=== PATIENT | male | born 1970 | race Caucasian/White ===

== ENCOUNTER 2017-03-06 02:39 | Emergency (ER) | payer OTHER ==
[~2017-03-06] VITALS: Ht 182.9 cm; Wt 147.0 kg
[2017-03-06 02:43] VITALS: BP 143/91; PULSE 96; TEMP 36.7; O2SAT 97; Ht 182.9 cm; Wt 147.0 kg
[2017-03-06] MEDS ORDERED: AMOXICILLIN 250 MG CAP PO STA (02:52)
[2017-03-06] MEDS ORDERED: AMOX500T3 PO (03:07)
--- NOTE | 2017-03-06 03:08 | EMERGENCY ROOM VISIT NOTE ---
ED Visit Note First contact with patient: 02:45 CHIEF COMPLAINT: Earache HISTORY OF PRESENT ILLNESS: This 46-year-old male presents to the emergency department complaining of pain in both of his ears for the past few days. He also states that his ears have been popping. He reports these symptoms are similar to when he has had ear infections in the past. He has had tubes in his ears in the past. He rates the discomfort a 5/10. He denies any sore throat or cough. He has been taking utyp-oiz-[id number] medications for pain. REVIEW OF SYSTEMS: A 6 system review of systems was completed with positives and pertinent negatives listed in the HPI. ALLERGIES: No known drug allergies MEDICATIONS: No chronic medications PMH: No significant past medical history. Immunizations are up to date. SH: The patient lives locally with family. He is a smoker. PHYSICAL EXAM: Vital Signs: Reviewed Nurse's notes, temperature 36.7C orally. GENERAL: This is a 46-year-old male, in no acute distress, well-developed, well- nourished. SKIN: Normal. HEART: Regular rate and rhythm without murmurs gallops or rubs. LUNGS: Clear to auscultation and breath sounds equal, no wheezes, rales, or rhonchi. MOUTH: The pharynx is not inflamed and the tonsils are not enlarged. The airway is patent. EARS: Bilateral tympanic membranes are erythematous and injected. No tympanostomy tubes are seen. The external auditory canals are clear with no tragus tenderness. LYMPH: There is no lymphadenopathy. ED COURSE: I examined the patient. He does appear to have a mild bilateral otitis media. He will be treated with amoxicillin. He was given an initial dose here and instructed to follow-up with primary care provider. The patient was discharged home in stable condition. Medication reconciliation: I attest that I have personally reviewed the patient 's current medication list. Blood pressure screening: Patient was found to have an elevated blood pressure and was referred to their primary care provider for recheck and further treatment. DIAGNOSIS: Acute bilateral otitis media Problem List Medical Problems: (1) Kidney stone Status: Resolved Current/Historical Medications No Active Prescriptions or Reported Meds Allergies Uncoded Allergies: HOME MADE COLEMANSUP (Allergy, Unknown, SWELLING, 01/27/16) Vital Signs Date Time Temp Pulse Resp B/P (MAP) Pulse Ox O2 Delivery O2 Flow Rate FiO2 03/06/17 02:43 36.7 96 16 143/91 97 Room Air Medications Administered Medications (Trade) Dose Ordered Sig/Eulalia Route Start Time Stop Time Status Last Admin Dose Admin Amoxicillin (Amoxil Cap) 500 mg NOW STAT PO 03/06/17 02:52 03/06/17 02:55 DC 03/06/17 02:58 500 MG Departure Information Impression Primary Impression: Bilateral otitis media Dispostion Home / Self-Care Condition GOOD Prescriptions Amoxicillin (AMOXIL) 500 Mg Tab 500 MG PO BID for 10 Days, #20 TAB Prov: Sachi Camacho PA-C 03/06/17 Referrals No Doctor, Assigned (PCP) Patient Instructions My [facility] Additional Instructions You have been treated in the Emergency Department for an Inner Ear Infection ( Otitis Media). You were prescribed amoxicillin to be taken twice daily for a total of 10 days. This is an antibiotic. All antibiotics have the potential to cause diarrhea. Stop this medication and contact a medical provider if you were to develop any significant adverse side effects including: wheezing, shortness of breath, passing out, vomiting, or a diffuse rash. Always take antibiotics as directed and COMPLETE the ENTIRE course regardless of the improvement of your symptoms. For pain and fever control, you can use the following dohe-nay-oknzmsg medicines (if >12 yo): - Regular strength (325mg/tab) Tylenol (acetaminophen) 2 tabs every 4-6 hours as needed. Do not exceed 12 tablets in a 24 hour period. Avoid taking more than 4 grams (4000 mg) of Tylenol per day. This includes any other sources of acetaminophen you may take on a regular basis. - Regular strength (200 mg/tab) Advil (ibuprofen) 1-2 tabs every 4-6 hours as needed. Do not exceed a dose of 3200 mg per day. You should follow-up with your Primary Care Provider from today's Emergency Department visit. Your blood pressure was elevated today. You should have this rechecked by your regular doctor or provider. Return to the emergency department if you develop the following symptoms despite treatment course outlined above: headache, fever, intractable pain, increased redness, swelling, or purulent discharge. Problem Qualifiers Primary Impression: Bilateral otitis media Otitis media type: unspecified Chronicity: unspecified Qualified Codes: H66.93 - Otitis media, unspecified, bilateral
== END 2017-03-06 03:10 | disposition home or self-care (01) ==
LOC: C.EDB 02:40 → C.EDA 03:10
DX: H66.93 Otitis media, unspecified, bilateral (principal); F17.200 Nicotine dependence, unspecified, uncomplicated

== ENCOUNTER 2022-05-29 09:17 | Inpatient (IN) ==
[2022-05-29] MEDS ORDERED: ONDANSETRON INJ 2 MG/ML 2 ML VIAL IV STA (10:24)
[2022-05-29] MEDS ORDERED: SODIUM CHLORIDE 0.9% 1000ML 1,000 ML IV ONE (10:24)
[2022-05-29 10:45] LABS: Appearance Urine Cloudy (Clear); Bacteria Urine Automated Negative (Negative); Blood Urine Negative (Negative); Color Urine Dark Yellow; Glucose Urine UA Negative (Negative); Ketones Urine Trace (Negative); Leukocyte Esterase Urine Negative (Negative); Nitrite Urine Positive (Negative); Protein Urine 2+ (Negative); Specific Gravity Urine 1.035 (1.000-1.030); Urobilinogen Urine Negative (Negative)
[2022-05-29] MEDS ORDERED: FAMOTIDINE 20MG IV PUSH 20 MG/5 ML SYR IV STA (10:46)
[2022-05-29] MEDS ORDERED: ACETAMINOPHEN 1,000 MG/100 ML VIAL IV STA (10:46)
[2022-05-29 10:47] LABS: Bilirubin Urine 1+ (Negative)
[2022-05-29 10:58] LABS: Epithelial Cell Urine Auto 0-5 /lpf (0-5)
[2022-05-29 10:59] LABS: Mucus Urine Present (None Prsent); RBC Urine Automated 0-4 /hpf (0-4)
[2022-05-29 11:07] LABS: Albumin Globulin Ratio 1.6 (0.9-2); Albumin Level 4.6 gm/dl (3.4-5.0); BUN Creatinine Ratio 12.5 (10-20); Calcium 9.4 mg/dl (8.5-10.1); Est GFR (Non-African American) 102.7 ml/min; Globulin 2.8 gm/dl (2.5-4.0); Potassium 4.1 mmol/L (3.5-5.1); Total Protein 7.4 gm/dl (6.0-8.3)
[2022-05-29 11:17] LABS: Basophils # (auto) 0.06 K/uL (0-0.2); Basophils % (auto) 0.4 %; Eosinophils # (auto) 0.13 K/uL (0-0.50); Eosinophils % (auto) 0.9 %; Hematocrit (blood only) 47.8 % (40.1-51.0); Hemoglobin 16.5 g/dl (14.0-18.0); Immature Granulocytes # (auto) 0.05 K/uL (0.00-0.02); Immature Granulocytes % (auto) 0.3 %; Lymphocytes # (auto) 1.42 K/uL (1.2-3.4); Lymphocytes % (auto) 9.9 %; Mean Corpuscular Hemoglobin 30.8 pg (25.0-34.0); Mean Corpuscular Hgb Conc 34.5 g/dL (32.0-36.0); Mean Corpuscular Volume 89.2 fL (80.0-100.0); Monocytes # (auto) 0.92 K/uL (0.24-0.82); Monocytes % (auto) 6.4 %; Neutrophils # (auto) 11.75 K/uL (1.4-6.5); Neutrophils % (auto) 82.1 %; Platelet Count 231 K/uL (130-400); RDW Coefficient of Variation 12.6 % (11.5-14.5); RDW Standard Deviation 41.1 fL (36.4-46.3); Red Blood Count 5.36 M/uL (4.63-6.08); White Blood Count 14.33 K/ul (4.8-10.8)
[2022-05-29 11:21] LABS: Uric Acid Crystals Urine Present (None Prsent)
[2022-05-29] MEDS ORDERED: OPTIRAY 300 100mL IV ONE (12:12)
--- NOTE | 2022-05-29 12:39 | CT Scan Report ---
ABDOMEN AND PELVIS CT WITH IV CONTRAST CT DOSE: 1928.44 mGy.cm HISTORY: Nausea. Vomiting. Right lower quadrant pain. TECHNIQUE: Multiaxial CT images of the abdomen and pelvis were performed following the use of intrave nous contrast. A dose lowering technique was utilized adhering to the principles of ALARA. COMPARISON STUDY: Abdomen and pelvis CT 06/08/2021. FINDINGS: Stable 3 mm nodule within the left lower lobe on image 28. No pneumoperitoneum. No pneumato sis. No fractures within the visualized osseous structures. Mild hepatic steatosis. The gallbladder, pancreas, spleen, adrenal glands, and left kidney are unremarkable. A right pelvic kidney is again no yen. No hydronephrosis. There is mild bladder wall thickening with adjacent fat stranding. There is t race pelvic free fluid. No retroperitoneal lymphadenopathy. Normal caliber abdominal aorta. The main portal vein is patent. The majority colon is decompressed. There is a normal appendix. Multiple dilat ed loops of proximal to mid small bowel containing gas and fluid. These measure up to 5 cm in diamete r. There is smooth tapering of the small bowel loops with a transition point located within the lower abdomen on image 382. Therefore, these findings are consistent with a small bowel obstruction with t he transition point located at the distal jejunum. There is mild circumferential thickening of the di stal jejunal loops which could represent a superimposed enteritis. There is trace mesenteric fluid ad jacent to the dilated loops of small bowel. IMPRESSION: 1. Small bowel obstruction with the transition point located within the lower abdomen at the level of the distal jejunum. This could be due to an adhesion. 2. Mild thickening within the mid to distal jejunal loops raising the possibility of a superimposed e nteritis. This may also account for the small bowel obstruction. 3. Normal appendix. 4. Trace mesenteric/pelvic ascites. 5. Hepatic steatosis. 6. Stable 3 mm nodule within the left lung base. 7. Right-sided pelvic kidney again noted. 8. Additional findings as described above. ACT 112: Negative or not required by law. Electronically signed by: Jose Doan M.D. 05/29/2022 12:37 PM
[2022-05-29] MEDS ORDERED: SODIUM CHLORIDE 0.9% 1000ML 1,000 ML IV SCH (14:15)
--- NOTE | 2022-05-29 14:27 | History & Physical Report ---
Date of Service May 29, 2022 Assessment & Plan (1) Small bowel obstruction: Plan: - Admit to med surg - SBO with possible superimposed enteritis - checking lactate, blood cultures - start empiric ceftriaxone and flagyl IV, leukocytosis with WBC of 14 K. Abdomen is currently soft, minimally distended, tender to palpation but no rigidity. - NGT to LIS placed in the ER, follow up KUB to assess placement is pending, follow daily KUB and serial abdominal exams per surgery - Discussed with gen surg ( Dr. Flores and Nargis Cantu PA-C) while at bedside - plans to continue conservative treatment for now, and proceed to the OR if worsening abdominal symptoms - Strict NPO to promote bowel rest - Given IV tylenol in the ER with minimal pain relief, will add toradol IV - NSS IV while Npo - Encourage ambulation as tolerated (2) Leukocytosis: Plan: - Possibly secondary to enteritis? Food poisioning from gas station food that had been sitting out overnight at [employer]? - Follow Lactate, BCx x 2, empiric antibiotics and NSS as above (3) DM type 2 (diabetes mellitus, type 2): Plan: - Last A1C =11.3 in March, recheck with am labs - ISS with accuchecks achs - Will benefit from diabetic counseling/ nurse while inpatient - Noncompliant with medication (metformin and ozempic) (4) MDD (major depressive disorder): Plan: - Pt is not on medication for such (5) Tobacco use: Plan: - Smokes since age 9, recently has cut back on cigarettes, "it has taken me 4 days to smoke a pack of cigarettes" but also note that the patient is acutely ill - Smoking cessation encouraged - Offered nicotine patch at bedside but pt declined - Lung nodule noted on CT, will need follow up within 6mo to 1 year (6) Obesity (BMI 30-39.9): Plan: - BMI of 38.6, diet and exercise to be encouraged throughout hospital stay DVT ppx: - teds, scds, no chemical prophylaxis in the setting of possible surgery CODE: Full code Dispo: From home, likely to remain in the hospital x 1-2 days History of Present Illness Primary Care Provider: Laura Cool PA-C This is a 51-year-old male with PMHx of uncontrolled DM type II, obesity with a BMI of 38.6, MDD, history of seizure disorder at age 12, migraine, congenital right pelvic kidney, current tobacco smoker, who presents to the ER with acute onset of nausea and vomiting as well as abdominal pain x1 day. 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 He denies any fevers or chills specifically but has been having sweats with dry heaves. Abdominal pain was rated as an 8/10 and came to the ER. He feels like there are a bunch of snakes rolling around in his stomach. His last bowel movement was a day or 2 ago, and says every 3 days is typical for him. Denies ever having abdominal surgeries before. He was scheduled to have an outpatient colonoscopy at [facility] last month however the prep was poor, did not complete the study. He lives at home with his and his 's parents, denies any recent sick contacts. Nobody he knows is exhibiting symptoms such as his, but he denies that anybody else ate similar foods/ has same symptoms that he is aware of. CT of the abdomen pelvis shows small bowel obstruction with a transition point located at the lower abdomen at the level of the distal jejunum, noted that it could be due to an adhesion. There is concern for superimposed enteritis with mild thickening of the mid to distal jejunal loops, hepatic steatosis, right- sided pelvic kidney. Patient has not had any abdominal surgeries previously. White count is 14 K. Will check a lactic acid and blood cultures and start empiric antibiotics. NGT was placed in the ER to LIS. Allergies Allergy/AdvReac Type Severity Reaction Status Date / Time ketchup Allergy Unknown Swelling Unverified 05/29/22 17:42 to Home Made Ketchup Home Medications Medication Instructions Recorded Confirmed Type amoxicillin 875 mg-potassium 1 tab PO BID #14 tabs 08/29/18 Rx clavulanate 125 mg tablet (Augmentin) naproxen 500 mg tablet 500 mg PO Q12H PRN pain #10 tabs 08/29/18 Rx Past Med/Surg History Medical History (Updated 05/29/22 @ 15:07 by Preethi Feliciano PA-C) COVID-19 DM type 2 (diabetes mellitus, type 2) MDD (major depressive disorder) Obesity (BMI 30-39.9) Small bowel obstruction Surgical History (Updated 05/29/22 @ 15:07 by Preethi Feliciano PA-C) No history of previous surgery Family History (Updated 08/29/18 @ 16:37 by Su Farley) Other No significant family history Social History (Updated 05/29/22 @ 15:08 by Preethi Feliciano PA-C) Smoking Status: Current every day smoker Age Started Using Tobacco: 9; Cigarettes Per Day: 5-7; Hx Alcohol Use: Yes Alcohol Intake Frequency: Monthly or Less Hx Substance Use: No Current Living Situation: Spouse current occupational status: employed Feels Safe at Home: Yes Review of Systems Review of Systems: Constitutional: No fever, chills, +sweating with dry heaves Eyes: No diplopia, no worsening or blurred vision ENT: normal hearing, no trouble swallowing Respiratory: No cough, sputum, dyspnea at rest or on exertion Cardiovascular: No chest pain, tightness or palpitations Abdomen: + pain, +nausea, +vomiting/dry heaves, no diarrhea or constipation, last BM was about 2- 3 days ago Musculoskeletal: No joint pain, calf pain, swelling Neurologic: No weakness, numbness/tingling, or balance problems Psychiatric: No anxiety, +hx of depression Skin: No rash or itch Physical Exam Physical Exam: General: awake, alert, + mild distress, NGT has been placed in the ER Head: Normocephalic, atraumatic ENT: PERRL, EOMI, no pharyngeal exudate, mucous membranes moist Chest: On room air, expiratory wheeze L>R, otherwise no adventitious breath sounds Cardiac: Sinus tachycardia, no murmur, no JVD, normal peripheral pulses, good capillary refill Abdominal: Hypoactive to absent bowel sounds in 4 quadrants, +soft, minimally distended, +tender to palpation, no rebound or guarding Extremities: Normal inspection, no peripheral edema or erythema, calfs nontender to palpation Psych: Appropriately upset mood and flat Neuro: AAO x 3, strength intact bilaterally and rated 5/5, no motor deficits, speech is clear, no peripheral sensory deficits Results & Data Results & Data ([facility]) Vital Signs (Past 12 Hours) Vital Signs Temp Pulse Pulse Resp BP BP Pulse Ox 05/29/22 13:10 91 H 16 150/95 H 98 05/29/22 11:18 96 H 22 153/98 H 97 05/29/22 09:25 36.4 C L 133 H 18 139/86 96 O2 Del Method 05/29/22 13:10 Room Air 05/29/22 11:18 Room Air 05/29/22 09:25 Room Air Laboratory Results 05/29/22 14:56 Aerobic Blood Culture - Pending Blood Anaerobic Blood Culture - Pending 05/29/22 05/29/22 05/29/22 11:06 11:04 10:20 WBC 14.33 H RBC 5.36 Hgb 16.5 Hct 47.8 MCV 89.2 MCH 30.8 MCHC 34.5 RDW Std Deviation 41.1 RDW Coeff of Son 12.6 Plt Count 231 MPV 10.0 Immature Gran % (Auto) 0.3 Neut % (Auto) 82.1 Lymph % (Auto) 9.9 Zapata % (Auto) 6.4 Eos % (Auto) 0.9 Baso % (Auto) 0.4 Neut # (Auto) 11.75 H Lymph # (Auto) 1.42 Zapata # (Auto) 0.92 H Eos # (Auto) 0.13 Baso # (Auto) 0.06 Immature Gran # (Auto) 0.05 H Absolute Nucleated RBC Nucleated RBC % (auto) Neutrophils % (Manual) Band Neutrophils % Lymphocytes % (Manual) Prolymphocyte % Reactive Lymphs % (Man) Monocytes % (Manual) Eosinophils % (Manual) Basophils % (Manual) Metamyelocytes % (Man) Myelocytes % (Man) Promyelocytes % (Man) Blast Cells % (Manual) Plasma Cell % (Manual) Other Cells % Nucleated RBC % Neutrophils # (Manual) Band Neutrophils # Total Absolute Neuts Lymphocytes # (Manual) Prolymphocyte # Reactive Lymphs # Total Abs Lymphocytes Monocytes # (Manual) Eosinophils # (Manual) Basophils # (Manual) Metamyelocytes # (Man) Myelocytes # (Manual) Promyelocytes # (Man) Blast Cells # (Man) Plasma Cell # (Manual) Other Cells # Nucleated RBCs # (Man) Hypersegmented Neuts Hyposegmented Neuts Hypogranular Neuts Large Granular Lymphs # Lrg Granular Lymphs Hairy Cells Smudge Cells Toxic Granulation Toxic Vacuolation Dohle Bodies Juan F Rods Platelet Estimate Hypogranular Platelets Clumped Platelets Giant Platelets Platelet Satelliting RBC Morphology Polychromasia Hypochromasia Poikilocytosis Basophilic Stippling Anisocytosis Microcytosis Macrocytosis Spherocytes Pappenheimer Bodies Sickle Cells Target Cells Tear Drop Cells Ovalocytes Stomatocytes Petersen-Brentford Bodies Echinocytes Acanthocytes (Spur) Rouleaux RBC Agglutinates Schistocytes Sezary Cell Sodium 137 Potassium 4.1 Chloride 102 Carbon Dioxide 24 Anion Gap 11 BUN 10 Creatinine 0.80 Est Cr Clr Drug Dosing 150.0 Est GFR ( Amer) 119.0 Est GFR (Non-Af Amer) 102.7 BUN/Creatinine Ratio 12.5 Glucose 168 H Calcium 9.4 Total Bilirubin 1.0 AST 31 ALT 42 Alkaline Phosphatase 68 Total Protein 7.4 Albumin 4.6 Globulin 2.8 Albumin/Globulin Ratio 1.6 Lipase 31 Urine Color Urine Appearance Urine pH Ur Specific Warren Urine Protein Urine Glucose (UA) Urine Ketones Urine Blood Urine Nitrite Urine Bilirubin Urine Urobilinogen Ur Leukocyte Esterase Urine WBC (Auto) Urine RBC (Auto) U Hyaline Cast (Auto) U Epithel Cells (Auto) Urine Bacteria (Auto) Urine Crystals Uric Acid Crystals Urine Mucus SARS-CoV-2, RNA, NAAT NEGATIVE Blood Parasites ID 05/29/22 05/29/22 10:20 10:11 WBC Cancelled RBC Cancelled Hgb Cancelled Hct Cancelled MCV Cancelled MCH Cancelled MCHC Cancelled RDW Std Deviation Cancelled RDW Coeff of Son Cancelled Plt Count Cancelled MPV Cancelled Immature Gran % (Auto) Cancelled Neut % (Auto) Cancelled Lymph % (Auto) Cancelled Zapata % (Auto) Cancelled Eos % (Auto) Cancelled Baso % (Auto) Cancelled Neut # (Auto) Cancelled Lymph # (Auto) Cancelled Zapata # (Auto) Cancelled Eos # (Auto) Cancelled Baso # (Auto) Cancelled Immature Gran # (Auto) Cancelled Absolute Nucleated RBC Cancelled Nucleated RBC % (auto) Cancelled Neutrophils % (Manual) Cancelled Band Neutrophils % Cancelled Lymphocytes % (Manual) Cancelled Prolymphocyte % Cancelled Reactive Lymphs % (Man) Cancelled Monocytes % (Manual) Cancelled Eosinophils % (Manual) Cancelled Basophils % (Manual) Cancelled Metamyelocytes % (Man) Cancelled Myelocytes % (Man) Cancelled Promyelocytes % (Man) Cancelled Blast Cells % (Manual) Cancelled Plasma Cell % (Manual) Cancelled Other Cells % Cancelled Nucleated RBC % Cancelled Neutrophils # (Manual) Cancelled Band Neutrophils # Cancelled Total Absolute Neuts Cancelled Lymphocytes # (Manual) Cancelled Prolymphocyte # Cancelled Reactive Lymphs # Cancelled Total Abs Lymphocytes Cancelled Monocytes # (Manual) Cancelled Eosinophils # (Manual) Cancelled Basophils # (Manual) Cancelled Metamyelocytes # (Man) Cancelled Myelocytes # (Manual) Cancelled Promyelocytes # (Man) Cancelled Blast Cells # (Man) Cancelled Plasma Cell # (Manual) Cancelled Other Cells # Cancelled Nucleated RBCs # (Man) Cancelled Hypersegmented Neuts Cancelled Hyposegmented Neuts Cancelled Hypogranular Neuts Cancelled Large Granular Lymphs Cancelled # Lrg Granular Lymphs Cancelled Hairy Cells Cancelled Smudge Cells Cancelled Toxic Granulation Cancelled Toxic Vacuolation Cancelled Dohle Bodies Cancelled Juan F Rods Cancelled Platelet Estimate Cancelled Hypogranular Platelets Cancelled Clumped Platelets Cancelled Giant Platelets Cancelled Platelet Satelliting Cancelled RBC Morphology Cancelled Polychromasia Cancelled Hypochromasia Cancelled Poikilocytosis Cancelled Basophilic Stippling Cancelled Anisocytosis Cancelled Microcytosis Cancelled Macrocytosis Cancelled Spherocytes Cancelled Pappenheimer Bodies Cancelled Sickle Cells Cancelled Target Cells Cancelled Tear Drop Cells Cancelled Ovalocytes Cancelled Stomatocytes Cancelled Petersen-Brentford Bodies Cancelled Echinocytes Cancelled Acanthocytes (Spur) Cancelled Rouleaux Cancelled RBC Agglutinates Cancelled Schistocytes Cancelled Sezary Cell Cancelled Sodium Potassium Chloride Carbon Dioxide Anion Gap BUN Creatinine Est Cr Clr Drug Dosing Est GFR ( Amer) Est GFR (Non-Af Amer) BUN/Creatinine Ratio Glucose Calcium Total Bilirubin AST ALT Alkaline Phosphatase Total Protein Albumin Globulin Albumin/Globulin Ratio Lipase Urine Color Dark Yellow Urine Appearance Cloudy A Urine pH 5.0 Ur Specific Warren 1.035 H Urine Protein 2+ H Urine Glucose (UA) Negative Urine Ketones Trace H Urine Blood Negative Urine Nitrite Positive A Urine Bilirubin 1+ H Urine Urobilinogen Negative Ur Leukocyte Esterase Negative Urine WBC (Auto) 1-5 Urine RBC (Auto) 0-4 U Hyaline Cast (Auto) 1-5 U Epithel Cells (Auto) 0-5 Urine Bacteria (Auto) Negative Urine Crystals Not Reportable Uric Acid Crystals Present A Urine Mucus Present A SARS-CoV-2, RNA, NAAT Blood Parasites ID Cancelled Diagnostic Findings Abdomen/Pelvis CT 05/29/22 10:[address] WITH IV CONTRAST CT DOSE: 1928.44 mGy.cm HISTORY: Nausea. Vomiting. Right lower quadrant pain. TECHNIQUE: Multiaxial CT images of the abdomen and pelvis were performed following the use of intravenous contrast. A dose lowering technique was utilized adhering to the principles of ALARA. COMPARISON STUDY: Abdomen and pelvis CT 06/08/2021. FINDINGS: Stable 3 mm nodule within the left lower lobe on image 28. No pneumoperitoneum. No pneumatosis. No fractures within the visualized osseous structures. Mild hepatic steatosis. The gallbladder, pancreas, spleen, adrenal glands, and left kidney are unremarkable. A right pelvic kidney is again noted. No hydronephrosis. There is mild bladder wall thickening with adjacent fat stranding. There is trace pelvic free fluid. No retroperitoneal lymphadenopathy. Normal caliber abdominal aorta. The main portal vein is patent. The majority colon is decompressed. There is a normal appendix. Multiple dilated loops of proximal to mid small bowel containing gas and fluid. These measure up to 5 cm in diameter. There is smooth tapering of the small bowel loops with a transition point located within the lower abdomen on image 382. Therefore, these findings are consistent with a small bowel obstruction with the transition point located at the distal jejunum. There is mild circumferential thickening of the distal jejunal loops which could represent a superimposed enteritis. There is trace mesenteric fluid adjacent to the dilated loops of small bowel. IMPRESSION: 1. Small bowel obstruction with the transition point located within the lower abdomen at the level of the distal jejunum. This could be due to an adhesion. 2. Mild thickening within the mid to distal jejunal loops raising the possibility of a superimposed enteritis. This may also account for the small bowel obstruction. 3. Normal appendix. 4. Trace mesenteric/pelvic ascites. 5. Hepatic steatosis. 6. Stable 3 mm nodule within the left lung base. 7. Right-sided pelvic kidney again noted. 8. Additional findings as described above. ACT 112: Negative or not required by law. Electronically signed by: Jose Doan M.D. 05/29/2022 12:37 PM Code Status & VTE Plan Code Status Full code Supervising Physician Co-Signing Physician Notes Patient is a 51-year-old male with history of diabetes, noncompliance and other medical problems presents with history of nausea, vomiting, abdominal pain. Patient denies any prior abdominal surgeries. He denies any chest pain, shortness of breath, fever, chills. Reports having chronic constipation. Please plan for outpatient colonoscopy. Please review HPI for complete details of presentation. Blood work showed leukocytosis 14 K, glucose 168. Abnormal urinalysis noted. Normal lactic acid levels. CT abdomen suggestive of small bowel obstruction with a transition point located within the lower abdomen at the level of the distal jejunum. Also findings suggestive of enteritis. Incidentally found to have left lung nodule. On exam patient is obese, no apparent distress, normocephalic/atraumatic, EOMI,+ NG tube, normal breath sounds, clear to auscultation, S1-S2, tachycardic, no pedal edema, abdomen soft, distended, decreased bowel sounds, mild generalized tenderness, alert, awake, oriented, grossly no focal deficits. Patient is admitted for management of small bowel obstruction, enteritis. Agree with bowel rest, IV fluids, empiric antibiotics. Check stool studies if develops diarrhea. Appreciate surgery input. Pain control. Minimize narcotic use as able. Noncompliant with diabetic medications. Utilize insulin while hospitalized. Monitor blood glucose levels. I personally reviewed the record. Patient is interviewed and examined at bedside. Patient's care is coordinated with Preethi Dobbins. Please refer to the documentation above for details of patient's presentation and for discussion of other issues.
[2022-05-29] MEDS ORDERED: KETOROLAC TROMETHAMINE 15 MG/ML VIAL IV PRN (14:40)
[2022-05-29] MEDS ORDERED: CHLORASEPTIC 1.4% SOLN 180 ML BTL MT PRN (14:40)
[2022-05-29] MEDS ORDERED: ceFAZolin 1000MG 1,000 MG/7.5 ML SYR IV SCH (14:45)
--- NOTE | 2022-05-29 15:03 | Surgery Consultation ---
Date of Consultation May 29, 2022 Assessment & Plan (1) Small bowel obstruction: Plan 51 year-old male who presented to ED with 1 day history of vomiting and generalized abdominal pain. CT scan with evidence of SBO at level of distal jejunum however no prior history of abdominal surgeries. Question of possible superimposed gastroenteritis. Leukocytosis of 14K. Abdomen is soft, nondistended, generalized tenderness but no peritonitis or rigidity. Lactic acid will be ordered. Plan: Discussed imaging findings with patient and etiology of SBO. He has never had surgery before so the cause of his SBO is unknown at this time however assured patient his exam does not indicate emergent surgical intervention and can likely proceed with conservative measures with IV fluids, NPO for bowel rest, NGT to LIS, and pain management as needed. Would recommend adding a lactic acid. KUB to eval NGT placement ordered repeat am labs Repeat KUB in am will continue to monitor Dr. Flores was present during my discussion with patient and also discussed with patient that if he does not improve with conservative measures or pain would increase he may need surgical intervention and patient understood. Dr. Flores has seen and examined pt, agrees with above. History of Present Illness Reason for Consultation: SBO Requesting Physician: Dr. Maninder Diego History of Present Illness Madi is a 51 year-old male with medical history of prediabetes not on any medication and COVID-19 in 2019 who presented to ED with complaint of vomiting and abdominal pain that began yesterday afternoon around 3 pm. States he ate around 4:30 am and then started having vomiting and was unable to keep fluids down. He then was able to drink something but then vomited again around 7 pm. Abdomen felt slightly firm and pain was generalized about 8/10 which brought him to the ER. Denies of known fevers but had sweats with episodes of vomiting. Denies chest pain or shortness of breath, diarrhea, blood in stools, difficulty urinating or blood in urine. Never had this type of pain before. No prior abdominal surgeries. History of congenital right pelvic kidney. No history of trauma to the abdomen recently. Was scheduled for colonoscopy about 3 weeks ago but prep was unsuccessful and patient cancelled. No family history of colon cancer or ulcerative colitis or Crohn's disease. Allergies Allergy/AdvReac Type Severity Reaction Status Date / Time HOME MADE KATSUP Allergy Unknown SWELLING Uncoded 08/29/18 16:31 Home Medications Medication Instructions Recorded Confirmed Type amoxicillin 875 mg-potassium 1 tab PO BID #14 tabs 08/29/18 Rx clavulanate 125 mg tablet (Augmentin) naproxen 500 mg tablet 500 mg PO Q12H PRN pain #10 tabs 08/29/18 Rx Patient History Medical History (Updated 05/29/22 @ 15:07 by Preethi Feliciano PA-C) COVID-19 DM type 2 (diabetes mellitus, type 2) MDD (major depressive disorder) Obesity (BMI 30-39.9) Small bowel obstruction Surgical History (Updated 05/29/22 @ 15:07 by Preethi Feliciano PA-C) No history of previous surgery Family History (Updated 08/29/18 @ 16:37 by Su Farley) Other No significant family history Social History (Updated 05/29/22 @ 15:08 by Preethi Feliciano PA-C) Smoking Status: Current every day smoker Age Started Using Tobacco: 9; Cigarettes Per Day: 5-7; Hx Alcohol Use: Yes Alcohol Intake Frequency: Monthly or Less Hx Substance Use: No Current Living Situation: Spouse current occupational status: employed Feels Safe at Home: Yes Review of Systems Review of Systems: All systems reviewed & are unremarkable except as noted in HPI & below Physical Exam Constitutional: WD/WN, vitals as above + obese and cooperative; no acute distress and not ill appearing Neck: normal visual inspection and trachea midline Respiratory: normal respiratory effort, lungs clear to auscultation no res piratory distress, no labored breathing, no retractions and no cough Auscultation: + wheezes (expiratory wheeze Left upper lobe) Gastrointestinal (Abdomen): Inspection/Auscultation: abdomen normal to inspection and + hypoactive bowel sounds; abdomen not distended, + abnormal bowel sounds, no abdominal surgical scar and no high-pitched sounds Percussion/Palpation: + abdomen tender (generalized tenderness) and abdomen soft; no guarding, abdomen not rigid and abdomen not firm Skin: no rashes, warm and dry no jaundice Psychiatric: Orientation: alert and oriented x 3 Results & Data ([facility]) Vital Signs (Past 12 Hours) Vital Signs Temp Pulse Pulse Resp BP BP Pulse Ox 05/29/22 13:10 91 H 16 150/95 H 98 05/29/22 11:18 96 H 22 153/98 H 97 05/29/22 09:25 36.4 C L 133 H 18 139/86 96 O2 Del Method 05/29/22 13:10 Room Air 05/29/22 11:18 Room Air 05/29/22 09:25 Room Air Laboratory Results 05/29/22 05/29/22 05/29/22 Range/Units 11:06 11:04 10:20 WBC 14.33 H RBC 5.36 Hgb 16.5 Hct 47.8 MCV 89.2 MCH 30.8 MCHC 34.5 RDW Std Deviation 41.1 RDW Coeff of Son 12.6 Plt Count 231 MPV 10.0 Immature Gran % (Auto) 0.3 Neut % (Auto) 82.1 Lymph % (Auto) 9.9 Titus % (Auto) 6.4 Eos % (Auto) 0.9 Baso % (Auto) 0.4 Neut # (Auto) 11.75 H Lymph # (Auto) 1.42 Titus # (Auto) 0.92 H Eos # (Auto) 0.13 Baso # (Auto) 0.06 Immature Gran # (Auto) 0.05 H Absolute Nucleated RBC Nucleated RBC % (auto) Neutrophils % (Manual) Band Neutrophils % Lymphocytes % (Manual) Prolymphocyte % Reactive Lymphs % (Man) Monocytes % (Manual) Eosinophils % (Manual) Basophils % (Manual) Metamyelocytes % (Man) Myelocytes % (Man) Promyelocytes % (Man) Blast Cells % (Manual) Plasma Cell % (Manual) Other Cells % Nucleated RBC % Neutrophils # (Manual) Band Neutrophils # Total Absolute Neuts Lymphocytes # (Manual) Prolymphocyte # Reactive Lymphs # Total Abs Lymphocytes Monocytes # (Manual) Eosinophils # (Manual) Basophils # (Manual) Metamyelocytes # (Man) Myelocytes # (Manual) Promyelocytes # (Man) Blast Cells # (Man) Plasma Cell # (Manual) Other Cells # Nucleated RBCs # (Man) Hypersegmented Neuts Hyposegmented Neuts Hypogranular Neuts Large Granular Lymphs # Lrg Granular Lymphs Hairy Cells Smudge Cells Toxic Granulation Toxic Vacuolation Dohle Bodies [place]s Platelet Estimate Hypogranular Platelets Clumped Platelets Giant Platelets Platelet Satelliting RBC Morphology Polychromasia Hypochromasia Poikilocytosis Basophilic Stippling Anisocytosis Microcytosis Macrocytosis Spherocytes Pappenheimer Bodies Sickle Cells Target Cells Tear Drop Cells Ovalocytes Stomatocytes Petersen-Medulla Bodies Echinocytes Acanthocytes (Spur) Rouleaux RBC Agglutinates Schistocytes Sezary Cell Sodium 137 (136-145) mmol/L Potassium 4.1 (3.5-5.1) mmol/L Chloride 102 (98-107) mmol/L Carbon Dioxide 24 (21-32) mmol/L Anion Gap 11 (3-11) BUN 10 (6-23) mg/dl Creatinine 0.80 (0.6-1.4) mg/dl Est Cr Clr Drug Dosing 150.0 ml/min Est GFR ( Amer) 119.0 ml/min Est GFR (Non-Af Amer) 102.7 ml/min BUN/Creatinine Ratio 12.5 (10-20) Glucose 168 H (70-99(Fasting)) mg/dl Calcium 9.4 (8.5-10.1) mg/dl Total Bilirubin 1.0 (0.2-1.0) mg/dl AST 31 (13-39) U/L ALT 42 (7-52) U/L Alkaline Phosphatase 68 (34-104) U/L Total Protein 7.4 (6.0-8.3) gm/dl Albumin 4.6 (3.4-5.0) gm/dl Globulin 2.8 (2.5-4.0) gm/dl Albumin/Globulin Ratio 1.6 (0.9-2) Lipase 31 (11-82) U/L Urine Color Urine Appearance (Clear) Urine pH (4.5-7.5) Ur Specific [place] (1.000-1.030) Urine Protein (Negative) Urine Glucose (UA) (Negative) Urine Ketones (Negative) Urine Blood (Negative) Urine Nitrite (Negative) Urine Bilirubin (Negative) Urine Urobilinogen (Negative) Ur Leukocyte Esterase (Negative) Urine WBC (Auto) (0-5) /hpf Urine RBC (Auto) (0-4) /hpf U Hyaline Cast (Auto) (0-5) /lpf U Epithel Cells (Auto) (0-5) /lpf Urine Bacteria (Auto) (Negative) Urine Crystals Uric Acid Crystals (None Prsent) Urine Mucus (None Prsent) SARS-CoV-2, RNA, NAAT NEGATIVE (NEGATIVE) Blood Parasites ID 05/29/22 05/29/22 Range/Units 10:20 10:11 WBC Cancelled RBC Cancelled Hgb Cancelled Hct Cancelled MCV Cancelled MCH Cancelled MCHC Cancelled RDW Std Deviation Cancelled RDW Coeff of Son Cancelled Plt Count Cancelled MPV Cancelled Immature Gran % (Auto) Cancelled Neut % (Auto) Cancelled Lymph % (Auto) Cancelled Titus % (Auto) Cancelled Eos % (Auto) Cancelled Baso % (Auto) Cancelled Neut # (Auto) Cancelled Lymph # (Auto) Cancelled Titus # (Auto) Cancelled Eos # (Auto) Cancelled Baso # (Auto) Cancelled Immature Gran # (Auto) Cancelled Absolute Nucleated RBC Cancelled Nucleated RBC % (auto) Cancelled Neutrophils % (Manual) Cancelled Band Neutrophils % Cancelled Lymphocytes % (Manual) Cancelled Prolymphocyte % Cancelled Reactive Lymphs % (Man) Cancelled Monocytes % (Manual) Cancelled Eosinophils % (Manual) Cancelled Basophils % (Manual) Cancelled Metamyelocytes % (Man) Cancelled Myelocytes % (Man) Cancelled Promyelocytes % (Man) Cancelled Blast Cells % (Manual) Cancelled Plasma Cell % (Manual) Cancelled Other Cells % Cancelled Nucleated RBC % Cancelled Neutrophils # (Manual) Cancelled Band Neutrophils # Cancelled Total Absolute Neuts Cancelled Lymphocytes # (Manual) Cancelled Prolymphocyte # Cancelled Reactive Lymphs # Cancelled Total Abs Lymphocytes Cancelled Monocytes # (Manual) Cancelled Eosinophils # (Manual) Cancelled Basophils # (Manual) Cancelled Metamyelocytes # (Man) Cancelled Myelocytes # (Manual) Cancelled Promyelocytes # (Man) Cancelled Blast Cells # (Man) Cancelled Plasma Cell # (Manual) Cancelled Other Cells # Cancelled Nucleated RBCs # (Man) Cancelled Hypersegmented Neuts Cancelled Hyposegmented Neuts Cancelled Hypogranular Neuts Cancelled Large Granular Lymphs Cancelled # Lrg Granular Lymphs Cancelled Hairy Cells Cancelled Smudge Cells Cancelled Toxic Granulation Cancelled Toxic Vacuolation Cancelled Dohle Bodies Cancelled [place] Rods Cancelled Platelet Estimate Cancelled Hypogranular Platelets Cancelled Clumped Platelets Cancelled Giant Platelets Cancelled Platelet Satelliting Cancelled RBC Morphology Cancelled Polychromasia Cancelled Hypochromasia Cancelled Poikilocytosis Cancelled Basophilic Stippling Cancelled Anisocytosis Cancelled Microcytosis Cancelled Macrocytosis Cancelled Spherocytes Cancelled Pappenheimer Bodies Cancelled Sickle Cells Cancelled Target Cells Cancelled Tear Drop Cells Cancelled Ovalocytes Cancelled Stomatocytes Cancelled Peters[place] Bodies Cancelled Echinocytes Cancelled Acanthocytes (Spur) Cancelled Rouleaux Cancelled RBC Agglutinates Cancelled Schistocytes Cancelled Sezary Cell Cancelled Sodium (136-145) mmol/L Potassium (3.5-5.1) mmol/L Chloride (98-107) mmol/L Carbon Dioxide (21-32) mmol/L Anion Gap (3-11) BUN (6-23) mg/dl Creatinine (0.6-1.4) mg/dl Est Cr Clr Drug Dosing ml/min Est GFR ( Amer) ml/min Est GFR (Non-Af Amer) ml/min BUN/Creatinine Ratio (10-20) Glucose (70-99(Fasting)) mg/dl Calcium (8.5-10.1) mg/dl Total Bilirubin (0.2-1.0) mg/dl AST (13-39) U/L ALT (7-52) U/L Alkaline Phosphatase (34-104) U/L Total Protein (6.0-8.3) gm/dl Albumin (3.4-5.0) gm/dl Globulin (2.5-4.0) gm/dl Albumin/Globulin Ratio (0.9-2) Lipase (11-82) U/L Urine Color Dark Yellow Urine Appearance Cloudy A (Clear) Urine pH 5.0 (4.5-7.5) Ur Specific [place] 1.035 H (1.000-1.030) Urine Protein 2+ H (Negative) Urine Glucose (UA) Negative (Negative) Urine Ketones Trace H (Negative) Urine Blood Negative (Negative) Urine Nitrite Positive A (Negative) Urine Bilirubin 1+ H (Negative) Urine Urobilinogen Negative (Negative) Ur Leukocyte Esterase Negative (Negative) Urine WBC (Auto) 1-5 (0-5) /hpf Urine RBC (Auto) 0-4 (0-4) /hpf U Hyaline Cast (Auto) 1-5 (0-5) /lpf U Epithel Cells (Auto) 0-5 (0-5) /lpf Urine Bacteria (Auto) Negative (Negative) Urine Crystals Not Reportable Uric Acid Crystals Present A (None Prsent) Urine Mucus Present A (None Prsent) SARS-CoV-2, RNA, NAAT (NEGATIVE) Blood Parasites ID Cancelled Diagnostic Findings ABDOMEN AND PELVIS CT WITH IV CONTRAST CT DOSE: 1928.44 mGy.cm HISTORY: Nausea. Vomiting. Right lower quadrant pain. TECHNIQUE: Multiaxial CT images of the abdomen and pelvis were performed following the use of intravenous contrast. A dose lowering technique was utilized adhering to the principles of ALARA. COMPARISON STUDY: Abdomen and pelvis CT 06/08/2021. FINDINGS: Stable 3 mm nodule within the left lower lobe on image 28. No pneumoperitoneum. No pneumatosis. No fractures within the visualized osseous structures. Mild hepatic steatosis. The gallbladder, pancreas, spleen, adrenal glands, and left kidney are unremarkable. A right pelvic kidney is again noted. No hydronephrosis. There is mild bladder wall thickening with adjacent fat stranding. There is trace pelvic free fluid. No retroperitoneal lymphadenopathy. Normal caliber abdominal aorta. The main portal vein is patent. The majority colon is decompressed. There is a normal appendix. Multiple dilated loops of proximal to mid small bowel containing gas and fluid. These measure up to 5 cm in diameter. There is smooth tapering of the small bowel loops with a transition point located within the lower abdomen on image 382. Therefore, these findings are consistent with a small bowel obstruction with the transition point located at the distal jejunum. There is mild circumferential thickening of the distal jejunal loops which could represent a superimposed enteritis. There is trace mesenteric fluid adjacent to the dilated loops of small bowel. IMPRESSION: 1. Small bowel obstruction with the transition point located within the lower abdomen at the level of the distal jejunum. This could be due to an adhesion. 2. Mild thickening within the mid to distal jejunal loops raising the possibility of a superimposed enteritis. This may also account for the small bowel obstruction. 3. Normal appendix. 4. Trace mesenteric/pelvic ascites. 5. Hepatic steatosis. 6. Stable 3 mm nodule within the left lung base. 7. Right-sided pelvic kidney again noted. 8. Additional findings as described above.
[2022-05-29] MEDS ORDERED: KETOROLAC TROMETHAMINE 15 MG/ML VIAL ONE (15:19)
--- NOTE | 2022-05-29 15:30 | XRay Report ---
KUB CLINICAL HISTORY: NGT placement COMPARISON STUDY: CT of the abdomen and pelvis performed earlier today. FINDINGS: Nasogastric tube is coiled within the stomach. The tip is within the body of the stomach. M ultiple loops of dilated small bowel are noted. These are better depicted on the CT of the abdomen an d pelvis and are consistent with a small bowel obstruction. IMPRESSION: 1. Nasogastric tube coiled within the stomach. Tip within the body of the stomach. 2. Small bowel dilatation consistent with a small bowel obstruction. ACT 112: Negative or not required by law. Electronically signed by: Jose Miguel Jett M.D. 05/29/2022 3:29 PM
[2022-05-29] MEDS ORDERED: cefTRIAXone SODIUM 2,000 MG in DEXTROSE 5% 50 ML IV STA (15:58)
[2022-05-29] MEDS ORDERED: metroNIDAZOLE 500 MG/100 ML BAG IV STA (16:00)
--- NOTE | 2022-05-29 17:14 | Emergency Department Note ---
Impression & Plan Small bowel obstruction, Leukocytosis, Intractable nausea and vomiting, Generalized abdominal pain ED Provider Note NAME: BENJAMIN JAMA AGE: 51 SEX: M ARRIVES VIA: Walk-In INFORMANT: Patient ED PROVIDER(S): Maninder Diego MD CHIEF COMPLAINT: Nausea/vomiting. PLAN: Disposition: Admit MEDICAL DECISION MAKING: The patient is a pleasant 51-year-old gentleman with a past medical history of gastritis, type 2 diabetes, tobacco use who presents to the emergency department for evaluation of nausea vomiting and abdominal pain which developed since this morning where he reports he is unable to keep anything down. He reports has not moved his bowels for several days but this is not atypical for him. He denies any fevers, cough, congestion, urinary symptoms. He denies any prior history of abdominal surgeries. On arrival the patient is uncomfortable no acute distress, afebrile with HR 130s and otherwise table vital signs. He appears clinically dry. He has mild right lower quadrant tenderness without guarding or rebound. WBC 14.3K nonspecific. H/H and platelets within normal limits. Chemistry without metabolic acidosis. LFTs unremarkable. Lipase within normal limits. UA with positive nitrites, nonspecific. CT of the abdomen pelvis was performed and demonstrates evidence of small bowel obstruction with transition point within the lower abdomen at the level of the jejunum. Note is made of thickening of the mid to distal jejunal loops raising the possibility of superimposed enteritis. Trace mesenteric and pelvic ascites is seen. Right sided pelvic kidney is noted and had been seen previously. Upon reevaluation patient did report feeling some improvement following IV fluid hydration, APAP, Pepcid, Zofran. HR improved. However, he did still have mild abdominal pain/tenderness and nausea. He did agree with plan for admission and NG tube. Case was reviewed with general surgery Nargis Cantu with general surgery on-call, Dr. Flores will evaluate the patient. Lola Nieves PAC, with Dr. Gayle Davila hospitalist who will evaluate the patient for admission. Triage Nursing notes reviewed and agree them. Prior medical records reviewed Vital Signs: reviewed and remarkable for tachycardia. Differential diagnosis: Appendicitis, testicular torsion, infections, diverticulitis, UTI, obstruction, mesenteric ischemia, aortic pathology, inflammatory bowel disease, renal colic, PUD, pancreatitis, biliary pathology, hernia, volvulus, constipation, as well as other pathologies. ER treatment provided: See below. Diagnostics interpreted by me: Cardiac Monitoring: An order for continuous cardiac monitoring was placed and demonstrated Sinus tachycardia, 133 bpm, no ectopy. Laboratory studies: See below Imaging studies: See below Consultation(s): General surgery Nargis Cantu with general surgery on-call, Dr. Mark Feliciano, [facility], with Dr. Gayle Davila hospitalist HPI: The patient is a pleasant 51-year-old gentleman with a past medical history of gastritis, type 2 diabetes, tobacco use who presents to the emergency department for evaluation of nausea vomiting and abdominal pain which developed since this morning where he reports he is unable to keep anything down. He reports has not moved his bowels for several days but this is not atypical for him. He denies any fevers, cough, congestion, urinary symptoms. He denies any prior history of abdominal surgeries. ROS: See above HPI for pertinent positives & negatives. A total of 10 systems reviewed and were otherwise negative. VITALS:See Below PHYSICAL EXAMINATION: GENERAL: Awake, alert, uncomfortable-appearing, in no distress, BMI 38.6. HENT: Normocephalic, atraumatic. Oropharynx with dry mucous membranes and otherwise unremarkable. EYES: Normal conjunctiva. Sclera non-icteric. NECK: Supple. No nuchal rigidity. FROM. No JVD. RESPIRATORY: Clear to auscultation. CARDIAC: Tachycardic rate, normal rhythm. Extremities warm and well perfused. Pulses equal. ABDOMEN: Soft, non-distended. Mild RLQ tenderness to palpation. No rebound or guarding. RECTAL: Deferred. MUSCULOSKELETAL: Chest examination reveals no tenderness. The back is symmetrical on inspection without obvious abnormality. There is no CVA tenderness to palpation. No joint edema. LOWER EXTREMITIES: Calves are equal size bilaterally and non-tender. No edema. No discoloration. NEURO: Normal sensorium. No sensory or motor deficits noted. SKIN: No rash or jaundice noted. ED COURSE: Critical Care: I have personally spent greater than 35 minutes of critical care time in the direct management of this patient. This includes bedside care, interpretation of diagnostic studies, and testing, discussion with consultants, patient, and family members, and other required patient management activities. This 35 minutes is in excess of all separately billable procedures. Maninder Diego MD Past Med/Surg History Medical History COVID-19 DM type 2 (diabetes mellitus, type 2) MDD (major depressive disorder) Obesity (BMI 30-39.9) Small bowel obstruction Surgical History No history of previous surgery Family History Other No significant family history Social History Smoking Status: Current every day smoker Age Started Using Tobacco: 9; Cigarettes Per Day: 5-7; Hx Alcohol Use: Yes Alcohol type: hard liquor Alcohol Intake Frequency: Monthly or Less Hx Substance Use: No Preferred Language: Greek [employer] T[employer] Required: No Beliefs That Will Affect Care: None Current Living Situation: Family current occupational status: employed Other Information That Helps Us Care for You: No Feels Safe at Home: Yes Safety Concerns: Feels Safe At This Time Assistive Devices: None Allergies Allergies Allergy/AdvReac Type Severity Reaction Status Date / Time ketchup Allergy Unknown Swelling Unverified 05/29/22 17:42 to Home Made Ketchup Home Meds Previous Rx's Medication Instructions Recorded amoxicillin 875 mg-potassium 1 tab PO BID #14 tabs 08/29/18 clavulanate 125 mg tablet (Augmentin) naproxen 500 mg tablet 500 mg PO Q12H PRN pain #10 tabs 08/29/18 Results & Data (ED) Vital Signs Vital Signs - 24 hr 05/29/22 09:25 05/29/22 11:18 05/29/22 13:10 Temperature 36.4 C L Temperature Source Temporal Artery Scan Pulse Rate 133 H Pulse Rate [Right Finger] 96 H 91 H Respiratory Rate 18 22 16 Respiratory Effort / Characteristics Non-Labored Spontaneous Respiratory Depth Normal Normal Respiratory Pattern Regular Blood Pressure 139/86 Blood Pressure [Right Arm] 153/98 H 150/95 H Blood Pressure Mean 103 Blood Pressure Mean [Right Arm] 116 113 Blood Pressure Position Sitting Pulse Oximetry 96 97 98 Oxygen Delivery Method Room Air Room Air Room Air Sepsis Recent Fever Within 48 Hours No Sepsis New/Unexplained Change in Mental Status No Sepsis Action Taken by Nursing No Action Required Laboratory Data Attestation: I reviewed the patient's lab results. Result diagrams: 05/29/22 11:04 05/29/22 10:20 Lab Results 05/29/22 05/29/22 05/29/22 Range/Units 10:11 10:20 10:20 WBC Cancelled RBC Cancelled Hgb Cancelled Hct Cancelled MCV Cancelled MCH Cancelled MCHC Cancelled RDW Std Deviation Cancelled RDW Coeff of Son Cancelled Plt Count Cancelled MPV Cancelled Immature Gran % (Auto) Cancelled Neut % (Auto) Cancelled Lymph % (Auto) Cancelled [place] % (Auto) Cancelled Eos % (Auto) Cancelled Baso % (Auto) Cancelled Neut # (Auto) Cancelled Lymph # (Auto) Cancelled [place] # (Auto) Cancelled Eos # (Auto) Cancelled Baso # (Auto) Cancelled Immature Gran # (Auto) Cancelled Absolute Nucleated RBC Cancelled Nucleated RBC % (auto) Cancelled Neutrophils % (Manual) Cancelled Band Neutrophils % Cancelled Lymphocytes % (Manual) Cancelled Prolymphocyte % Cancelled Reactive Lymphs % (Man) Cancelled Monocytes % (Manual) Cancelled Eosinophils % (Manual) Cancelled Basophils % (Manual) Cancelled Metamyelocytes % (Man) Cancelled Myelocytes % (Man) Cancelled Promyelocytes % (Man) Cancelled Blast Cells % (Manual) Cancelled Plasma Cell % (Manual) Cancelled Other Cells % Cancelled Nucleated RBC % Cancelled Neutrophils # (Manual) Cancelled Band Neutrophils # Cancelled Total Absolute Neuts Cancelled Lymphocytes # (Manual) Cancelled Prolymphocyte # Cancelled Reactive Lymphs # Cancelled Total Abs Lymphocytes Cancelled Monocytes # (Manual) Cancelled Eosinophils # (Manual) Cancelled Basophils # (Manual) Cancelled Metamyelocytes # (Man) Cancelled Myelocytes # (Manual) Cancelled Promyelocytes # (Man) Cancelled Blast Cells # (Man) Cancelled Plasma Cell # (Manual) Cancelled Other Cells # Cancelled Nucleated RBCs # (Man) Cancelled Hypersegmented Neuts Cancelled Hyposegmented Neuts Cancelled Hypogranular Neuts Cancelled Large Granular Lymphs Cancelled # Lrg Granular Lymphs Cancelled Hairy Cells Cancelled Smudge Cells Cancelled Toxic Granulation Cancelled Toxic Vacuolation Cancelled Dohle Bodies Cancelled [place] Rods Cancelled Platelet Estimate Cancelled Hypogranular Platelets Cancelled Clumped Platelets Cancelled Giant Platelets Cancelled Platelet Satelliting Cancelled RBC Morphology Cancelled Polychromasia Cancelled Hypochromasia Cancelled Poikilocytosis Cancelled Basophilic Stippling Cancelled Anisocytosis Cancelled Microcytosis Cancelled Macrocytosis Cancelled Spherocytes Cancelled Pappenheimer Bodies Cancelled Sickle Cells Cancelled Target Cells Cancelled Tear Drop Cells Cancelled Ovalocytes Cancelled Stomatocytes Cancelled Petersen-Pisinemo Bodies Cancelled Echinocytes Cancelled Acanthocytes (Spur) Cancelled Rouleaux Cancelled RBC Agglutinates Cancelled Schistocytes Cancelled Sezary Cell Cancelled Sodium 137 (136-145) mmol/L Potassium 4.1 (3.5-5.1) mmol/L Chloride 102 (98-107) mmol/L Carbon Dioxide 24 (21-32) mmol/L Anion Gap 11 (3-11) BUN 10 (6-23) mg/dl Creatinine 0.80 (0.6-1.4) mg/dl Est Cr Clr Drug Dosing 150.0 ml/min Est GFR ( Amer) 119.0 ml/min Est GFR (Non-Af Amer) 102.7 ml/min BUN/Creatinine Ratio 12.5 (10-20) Glucose 168 H (70-99(Fasting)) mg/dl Calcium 9.4 (8.5-10.1) mg/dl Total Bilirubin 1.0 (0.2-1.0) mg/dl AST 31 (13-39) U/L ALT 42 (7-52) U/L Alkaline Phosphatase 68 (34-104) U/L Total Protein 7.4 (6.0-8.3) gm/dl Albumin 4.6 (3.4-5.0) gm/dl Globulin 2.8 (2.5-4.0) gm/dl Albumin/Globulin Ratio 1.6 (0.9-2) Lipase 31 (11-82) U/L Urine Color Dark Yellow Urine Appearance Cloudy A (Clear) Urine pH 5.0 (4.5-7.5) Ur Specific [place] 1.035 H (1.000-1.030) Urine Protein 2+ H (Negative) Urine Glucose (UA) Negative (Negative) Urine Ketones Trace H (Negative) Urine Blood Negative (Negative) Urine Nitrite Positive A (Negative) Urine Bilirubin 1+ H (Negative) Urine Urobilinogen Negative (Negative) Ur Leukocyte Esterase Negative (Negative) Urine WBC (Auto) 1-5 (0-5) /hpf Urine RBC (Auto) 0-4 (0-4) /hpf U Hyaline Cast (Auto) 1-5 (0-5) /lpf U Epithel Cells (Auto) 0-5 (0-5) /lpf Urine Bacteria (Auto) Negative (Negative) Urine Crystals Not Reportable Uric Acid Crystals Present A (None Prsent) Urine Mucus Present A (None Prsent) SARS-CoV-2, RNA, NAAT (NEGATIVE) Blood Parasites ID Cancelled 05/29/22 05/29/22 Range/Units 11:04 11:06 WBC 14.33 H RBC 5.36 Hgb 16.5 Hct 47.8 MCV 89.2 MCH 30.8 MCHC 34.5 RDW Std Deviation 41.1 RDW Coeff of Son 12.6 Plt Count 231 MPV 10.0 Immature Gran % (Auto) 0.3 Neut % (Auto) 82.1 Lymph % (Auto) 9.9 [place] % (Auto) 6.4 Eos % (Auto) 0.9 Baso % (Auto) 0.4 Neut # (Auto) 11.75 H Lymph # (Auto) 1.42 [place] # (Auto) 0.92 H Eos # (Auto) 0.13 Baso # (Auto) 0.06 Immature Gran # (Auto) 0.05 H Absolute Nucleated RBC Nucleated RBC % (auto) Neutrophils % (Manual) Band Neutrophils % Lymphocytes % (Manual) Prolymphocyte % Reactive Lymphs % (Man) Monocytes % (Manual) Eosinophils % (Manual) Basophils % (Manual) Metamyelocytes % (Man) Myelocytes % (Man) Promyelocytes % (Man) Blast Cells % (Manual) Plasma Cell % (Manual) Other Cells % Nucleated RBC % Neutrophils # (Manual) Band Neutrophils # Total Absolute Neuts Lymphocytes # (Manual) Prolymphocyte # Reactive Lymphs # Total Abs Lymphocytes Monocytes # (Manual) Eosinophils # (Manual) Basophils # (Manual) Metamyelocytes # (Man) Myelocytes # (Manual) Promyelocytes # (Man) Blast Cells # (Man) Plasma Cell # (Manual) Other Cells # Nucleated RBCs # (Man) Hypersegmented Neuts Hyposegmented Neuts Hypogranular Neuts Large Granular Lymphs # Lrg Granular Lymphs Hairy Cells Smudge Cells Toxic Granulation Toxic Vacuolation Dohle Bodies Juan F Rods Platelet Estimate Hypogranular Platelets Clumped Platelets Giant Platelets Platelet Satelliting RBC Morphology Polychromasia Hypochromasia Poikilocytosis Basophilic Stippling Anisocytosis Microcytosis Macrocytosis Spherocytes Pappenheimer Bodies Sickle Cells Target Cells Tear Drop Cells Ovalocytes Stomatocytes Petersen-Pisinemo Bodies Echinocytes Acanthocytes (Spur) Rouleaux RBC Agglutinates Schistocytes Sezary Cell Sodium (136-145) mmol/L Potassium (3.5-5.1) mmol/L Chloride (98-107) mmol/L Carbon Dioxide (21-32) mmol/L Anion Gap (3-11) BUN (6-23) mg/dl Creatinine (0.6-1.4) mg/dl Est Cr Clr Drug Dosing ml/min Est GFR ( Amer) ml/min Est GFR (Non-Af Amer) ml/min BUN/Creatinine Ratio (10-20) Glucose (70-99(Fasting)) mg/dl Calcium (8.5-10.1) mg/dl Total Bilirubin (0.2-1.0) mg/dl AST (13-39) U/L ALT (7-52) U/L Alkaline Phosphatase (34-104) U/L Total Protein (6.0-8.3) gm/dl Albumin (3.4-5.0) gm/dl Globulin (2.5-4.0) gm/dl Albumin/Globulin Ratio (0.9-2) Lipase (11-82) U/L Urine Color Urine Appearance (Clear) Urine pH (4.5-7.5) Ur Specific [place] (1.000-1.030) Urine Protein (Negative) Urine Glucose (UA) (Negative) Urine Ketones (Negative) Urine Blood (Negative) Urine Nitrite (Negative) Urine Bilirubin (Negative) Urine Urobilinogen (Negative) Ur Leukocyte Esterase (Negative) Urine WBC (Auto) (0-5) /hpf Urine RBC (Auto) (0-4) /hpf U Hyaline Cast (Auto) (0-5) /lpf U Epithel Cells (Auto) (0-5) /lpf Urine Bacteria (Auto) (Negative) Urine Crystals Uric Acid Crystals (None Prsent) Urine Mucus (None Prsent) SARS-CoV-2, RNA, NAAT NEGATIVE (NEGATIVE) Blood Parasites ID Administered Medications Sodium Chloride (Nss 1000ml) 1,000 mls @ 80 mls/hr IV .[id number] ELIZABETH Stop: 05/30/22 19:16 Last Admin: 05/29/22 18:47 Dose: 80 mls/hr Documented By: DILCIA Metronidazole (Flagyl) 500 mg in 100 mls @ 100 mls/hr IV Q8H ELIZABETH Stop: 06/08/22 18:29 Last Admin: 05/29/22 18:44 Dose: Not Given Documented By: DILCIA Discontinued Medications Sodium Chloride (Nss 1000ml) 1,000 mls @ 999 mls/hr IV .Q1H1M ONE Stop: 05/29/22 11:24 Last Infusion: 05/29/22 11:34 Dose: 0 mls/hr Documented By: Admin: 05/29/22 10:33 Dose: 999 mls/hr Documented By: KULWANT Acetaminophen (Ofirmev) 1,000 mg in 100 mls @ 400 mls/hr IV NOW STA Stop: 05/29/22 11:00 Last Infusion: 05/29/22 11:16 Dose: 0 mls/hr Documented By: Admin: 05/29/22 11:00 Dose: 400 mls/hr Documented By: AZUL Famotidine (Pepcid 20mg Iv Push) 20 mg in 5 mls @ 2.5 mls/min IV NOW STA Stop: 05/29/22 10:47 Last Admin: 05/29/22 11:00 Dose: 2.5 mls/min Documented By: MES Sodium Chloride (Nss 1000ml) 1,000 mls @ 125 mls/hr IV .Q8H ELIZABETH Stop: 06/28/22 14:14 Last Infusion: 05/29/22 18:50 Dose: 0 mls/hr Documented By: Admin: 05/29/22 16:19 Dose: 125 mls/hr Documented By: AZUL Ceftriaxone Sodium 2,000 mg/ (Dextrose) 70 mls @ 140 mls/hr IV NOW STA Stop: 05/29/22 16:27 Last Infusion: 05/29/22 16:49 Dose: 0 mls/hr Documented By: Admin: 05/29/22 16:18 Dose: 140 mls/hr Documented By: AZUL Metronidazole (Flagyl) 500 mg in 100 mls @ 100 mls/hr IV NOW STA Stop: 05/29/22 16:59 Last Infusion: 05/29/22 18:50 Dose: 0 mls/hr Documented By: Admin: 05/29/22 17:18 Dose: 100 mls/hr Documented By: AZUL Insulin Aspart (Insulin Aspart Per Unit) 0 units SC ACHS ELIZABETH Stop: 06/28/22 18:16 Last Admin: 05/29/22 18:49 Dose: Not Given Documented By: DILCIA Ioversol (Optiray 300 100ml) 94 ml IV ONCE ONE Stop: 05/29/22 12:13 Last Admin: 05/29/22 12:12 Dose: 94 ml Documented By: JAVON Ketorolac Tromethamine (Ketorolac Tromethamine 15 Mg/Ml Vial) Confirm Administered Dose 15 mg .ROUTE .STK-MED ONE Stop: 05/29/22 15:20 Last Admin: 05/29/22 15:49 Dose: 15 mg Documented By: AZUL Ondansetron HCl (Ondansetron Inj 2 Mg/Ml 2 Ml Vial) 4 mg IV NOW STA Stop: 05/29/22 10:25 Last Admin: 05/29/22 10:32 Dose: 4 mg Documented By: KULWANT Imaging Data Radiologist's Impression: Abdomen/Pelvis CT 05/29/22 10:[address] WITH IV CONTRAST CT DOSE: 1928.44 mGy.cm HISTORY: Nausea. Vomiting. Right lower quadrant pain. TECHNIQUE: Multiaxial CT images of the abdomen and pelvis were performed following the use of intravenous contrast. A dose lowering technique was utilized adhering to the principles of ALARA. COMPARISON STUDY: Abdomen and pelvis CT 06/08/2021. FINDINGS: Stable 3 mm nodule within the left lower lobe on image 28. No pneumoperitoneum. No pneumatosis. No fractures within the visualized osseous structures. Mild hepatic steatosis. The gallbladder, pancreas, spleen, adrenal glands, and left kidney are unremarkable. A right pelvic kidney is again noted. No hydronephrosis. There is mild bladder wall thickening with adjacent fat stranding. There is trace pelvic free fluid. No retroperitoneal lymphadenopathy. Normal caliber abdominal aorta. The main portal vein is patent. The majority colon is decompressed. There is a normal appendix. Multiple dilated loops of proximal to mid small bowel containing gas and fluid. These measure up to 5 cm in diameter. There is smooth tapering of the small bowel loops with a transition point located within the lower abdomen on image 382. Therefore, these findings are consistent with a small bowel obstruction with the transition point located at the distal jejunum. There is mild circumferential thickening of the distal jejunal loops which could represent a superimposed enteritis. There is trace mesenteric fluid adjacent to the dilated loops of small bowel. IMPRESSION: 1. Small bowel obstruction with the transition point located within the lower abdomen at the level of the distal jejunum. This could be due to an adhesion. 2. Mild thickening within the mid to distal jejunal loops raising the possibili ty of a superimposed enteritis. This may also account for the small bowel obstruction. 3. Normal appendix. 4. Trace mesenteric/pelvic ascites. 5. Hepatic steatosis. 6. Stable 3 mm nodule within the left lung base. 7. Right-sided pelvic kidney again noted. 8. Additional findings as described above. ACT 112: Negative or not required by law. Electronically signed by: Jose Doan M.D. 05/29/2022 12:37 PM Discharge Plan Visit Data Chief Complaint: Vomiting Stated Complaint: VOMITNG, ABDOMINAL PAIN, HARD ED Provider: Maninder Diego Discharge Problem: Small bowel obstruction, Leukocytosis, Intractable nausea and vomiting, Generalized abdominal pain Patient Disposition: Admitted As Inpatient Discharge Instructions Interventions: ED Discharge Assessment Last Done: 05/29/22 17:48
[2022-05-29] MEDS ORDERED: GLUCOSE 40% GEL 15 GM TUBE PO PRN (18:17)
[2022-05-29] MEDS ORDERED: GLUCAGON FOR INJ 1 MG VIAL SQ PRN (18:17)
[2022-05-29] MEDS ORDERED: DEXTROSE 50% 50 ML SYRINGE IV PRN (18:17)
[2022-05-29] MEDS ORDERED: MoRPHine SULFATE 2 MG/ML CARP IV PRN (18:17)
[2022-05-29] MEDS ORDERED: ONDANSETRON INJ 2 MG/ML 2 ML VIAL IV PRN (18:17)
[2022-05-29] MEDS ORDERED: INSULIN ASPART PER UNIT SC SCH (18:17)
[2022-05-29] MEDS ORDERED: GLUCOSE 10 TAB/TUBE PO PRN (18:17)
[2022-05-29] MEDS ORDERED: CARBOHYDRATES FOR HYPOGLYCEMIA PO PRN (18:17)
[2022-05-29] MEDS: metroNIDAZOLE 500 MG/100 ML BAG IV SCH (18:44)
[2022-05-29] MEDS: SODIUM CHLORIDE 0.9% 1000ML 1,000 ML IV SCH (18:47)
[2022-05-29] MEDS ORDERED: Nursing to Pharmacy Communication SCH (20:30)
[2022-05-30] MEDS: INSULIN ASPART PER UNIT SC SCH ×4 (00:23→18:20)
[2022-05-30] MEDS: metroNIDAZOLE 500 MG/100 ML BAG IV SCH ×2 (01:50→10:24)
[2022-05-30] MEDS: SODIUM CHLORIDE 0.9% 1000ML 1,000 ML IV SCH ×2 (05:39→19:05)
[2022-05-30 08:25] LABS: BUN Creatinine Ratio 12.3 (10-20); Blood Urea Nitrogen 9 mg/dl (6-23); Calcium 8.8 mg/dl (8.5-10.1); Carbon Dioxide 27 mmol/L (21-32); Chloride 106 mmol/L (98-107); Creatinine Clr Calc Pharmacy 164.3 ml/min; Est GFR (African American) 123.6 ml/min; Est GFR (Non-African American) 106.6 ml/min; Glucose 89 mg/dl (70-99(Fasting))
[2022-05-30 08:28] LABS: Hemoglobin 15.6 g/dl (14.0-18.0); Mean Corpuscular Hemoglobin 31.1 pg (25.0-34.0); Mean Corpuscular Hgb Conc 35.5 g/dL (32.0-36.0); Mean Corpuscular Volume 87.6 fL (80.0-100.0); Mean Platelet Volume 10.1 fL (9.4-12.4); Platelet Count 216 K/uL (130-400); RDW Coefficient of Variation 12.6 % (11.5-14.5); RDW Standard Deviation 40.2 fL (36.4-46.3); Red Blood Count 5.02 M/uL (4.63-6.08); White Blood Count 11.09 K/ul (4.8-10.8)
[2022-05-30] MEDS ORDERED: cefTRIAXone SODIUM 2,000 MG in DEXTROSE 5% 50 ML IV SCH (09:00)
[2022-05-30 09:01] LABS: Potassium 3.6 mmol/L (3.5-5.1)
--- NOTE | 2022-05-30 09:27 | XRay Report ---
KUB HISTORY: Acute abdominal pain with nausea and vomiting. Assess SBO COMPARISON: KUB 05/29/2022, CT 05/29/2022 FINDINGS: An enteric tube is present with distal tip projected over the distal stomach. Persistent sm all bowel obstruction with distended air-filled loops of small bowel measuring up to 5.6 cm. Findings appear stable to slightly improved from the comparison CT. Distended contrast-filled urinary bladder . No renal calculi. No ureteral calculi. No pneumoperitoneum or pneumatosis. No fracture. IMPRESSION: 1. Persistent small bowel obstruction. 2. Distal tip of enteric tube projects over the distal stomach. ACT 112: Negative or not required by law. The above report was generated using voice recognition software. It may contain grammatical, syntax o r spelling errors. Electronically signed by: Blayne Hernandez M.D. 05/30/2022 9:25 AM
[2022-05-30 09:32] LABS: Estimated Average Glucose 137 mg/dl; Hemoglobin A1C 6.4 % (4.5-5.6)
--- NOTE | 2022-05-30 11:26 | Surgery Progress Note ---
Date of Service May 30, 2022 Assessment & Plan (1) Small bowel obstruction: Plan 51 year-old male who presented to ED with 1 day history of vomiting and generalized abdominal pain. CT scan with evidence of SBO at level of distal jejunum however no prior history of abdominal surgeries. Question of possible superimposed gastroenteritis. 05/30/2022: Leukocytosis improved to 11.K afebrile lactic acid 2.0 KUB showing persistent SBO however slightly improved compared to prior CT NGT with 650 cc output Plan: Continue conservative measures IV fluids, NPO For bowel rest, NGT to LIS, and pain management as needed Encouraged ambulation to increase bowel motility repeat am labs repeat am KUB Dr. Flores has seen and examined pt, agrees with above. Admission and Anticipated Discharge Date Admission Date: May 29, 2022 Subjective feeling slightly better today, pain is better but still about 6/10 (8/10 yesterday) able to urinate, no pain on urination passing gas but no bowel movement NGT very uncomfortable Physical Exam Constitutional: WD/WN, vitals as above + obese and cooperative; no acute distress and not ill appearing Neck: normal visual inspection and trachea midline Respiratory: normal respiratory effort; no respiratory distress and no labored breathing Gastrointestinal (Abdomen): Inspection/Auscultation: abdomen normal to inspect ion and + hypoactive bowel sounds; abdomen not distended and + abnormal bowel sounds Percussion/Palpation: + abdomen tender (generalized ) and abdomen soft; no guarding and abdomen not rigid Skin: no rashes, warm and dry Psychiatric: Orientation: alert and oriented x 3 Affect: + flat affect Results & Data ([facility]) Vital Signs (Past 12 Hours) Vital Signs Temp Pulse Resp BP BP Pulse Ox O2 Del Method 05/30/22 09:19 108 H 18 146/89 H 94 Room Air 05/30/22 07:31 37.2 C 106 H 18 130/79 94 Room Air 05/29/22 23:59 36.8 C 93 H 18 138/83 97 Room Air Diagnostic Findings KUB HISTORY: Acute abdominal pain with nausea and vomiting. Assess SBO COMPARISON: KUB 05/29/2022, CT 05/29/2022 FINDINGS: An enteric tube is present with distal tip projected over the distal stomach. Persistent small bowel obstruction with distended air-filled loops of small bowel measuring up to 5.6 cm. Findings appear stable to slightly improved from the comparison CT. Distended contrast-filled urinary bladder. No renal calculi. No ureteral calculi. No pneumoperitoneum or pneumatosis. No fracture. IMPRESSION: 1. Persistent small bowel obstruction. 2. Distal tip of enteric tube projects over the distal stomach.
--- NOTE | 2022-05-30 11:45 | Hospitalist Progress Note ---
Date of Service May 30, 2022 Assessment & Plan (1) Small bowel obstruction: Plan: 51-year-old male with PMHx of uncontrolled DM type II, obesity with a BMI of 38.6, MDD, history of seizure disorder at age 12, migraine, congenital right pelvic kidney, current tobacco smoker, who presented with acute onset of nausea and vomiting, abdominal pain. CT ABD/pelvis: 1. Small bowel obstruction with the transition point located within the lower abdomen at the level of the distal jejunum. This could be due to an adhesion. 2. Mild thickening within the mid to distal jejunal loops raising the possibility of a superimposed enteritis. This may also account for the small bowel obstruction. 3. Normal appendix. 4. Trace mesenteric/pelvic ascites. 5. Hepatic steatosis. 6. Stable 3 mm nodule within the left lung base. 7. Right-sided pelvic kidney again noted. NG tube placed on admission -- output 550 cc Lactic acid 2.0 General surgery following Continue bowel rest, NG tube, IVF Daily KUB Possible superimposed gastroenteritis, ? viral -- started on empiric IV ceftriaxone and IV Flagyl on admission, likely can de-escalate/discontinue soon. Will discuss with surgery. WBC 14 K --> 11K today (2) Leukocytosis: Plan: Possibly secondary to enteritis, ? food born illness from gas station food that had been sitting out No diarrhea reported Leukocytosis improving, patient remains afebrile (3) DM type 2 (diabetes mellitus, type 2): Plan: Last A1C =11.3 in March, now 6.4 NovoLog per protocol while hospitalized Per admitting provider, patient is noncompliant with medication (metformin and ozempic) (4) Tobacco use: Plan: Smoking cessation encouraged Offered nicotine patch, patient declined (5) Pulmonary nodule: Plan: CT ABD/pelvis noted Stable 3 mm nodule within the left lung base Outpatient follow-up (6) Obesity (BMI 30-39.9): Plan: BMI of 38.6, diet and exercise to be encouraged throughout hospital stay DVT ppx: TEDs/SCDs, hold on chemical prophylaxis due to need for possible surgery Admission and Anticipated Discharge Date Admission Date: May 29, 2022 Supervising Physician Co-Signing Physician Notes Patient is seen and examined at bedside. Abdominal pain improved today.+Flatus but no BM today. Denies any chest pain, shortness of breath, dizziness, nausea. On exam patient is obese, no apparent distress, normocephalic/atraumatic, EOMI,+ NG tube, normal breath sounds, clear to auscultation, S1-S2, tachycardic, no pedal edema, abdomen soft, distended, decreased bowel sounds, non tender, alert, awake, oriented, grossly no focal deficits. Small bowel obstruction, ? enteritis. Continue conservative management with IV fluids, bowel rest, NG tube. Encouraged to ambulate. Surgery following. Agree with discontinuing IV antibiotics. Minimize narcotic use as able. Plan to repeat KUB tomorrow. Utilize insulin while hospitalized. Consider consulting hospital educator when patient able to eat. I personally reviewed the record. Patient is interviewed and examined at bedside. Patient's care is coordinated with Jerica Brownlee NP. Please refer to the documentation above for details of patient's presentation and for discussion of other issues. Subjective Follow-up for small bowel obstruction. Patient seen and examined. Resting in bed. Patient reports feeling improved from yesterday. NG tube remains in place. Patient reports improvement in abdominal pain and nausea. + flatus, no BM Denies chest pain or shortness of breath. Review of Systems Review of Systems: ROS per HPI, all other systems reviewed and negative Physical Exam Constitutional: WD/WN, vitals as above no acute distress ENMT: NG tube in place, draining brown liquid Respiratory: normal respiratory effort, lungs clear to auscultation Cardiovascular: Rate/Rhythm: regular rate and regular rhythm Vessels: normal peripheral pulses Extremities: no edema Gastrointestinal (Abdomen): Inspection/Auscultation: abdomen not distended Percussion/Palpation: + abdomen tender (generalized) and abdomen soft Skin: no rashes, warm and dry Neurologic: no focal motor deficits Psychiatric: A+Ox3, euthymic affect Results & Data Results & Data ([facility]) Vital Signs (Past 12 Hours) Vital Signs Temp Pulse Resp BP BP Pulse Ox O2 Del Method 05/30/22 09:19 108 H 18 146/89 H 94 Room Air 05/30/22 07:31 37.2 C 106 H 18 130/79 94 Room Air 05/29/22 23:59 36.8 C 93 H 18 138/83 97 Room Air Laboratory Results Short CBC 05/30/22 Range/Units 07:55 WBC 11.09 H (4.8-10.8) K/ul Hgb 15.6 (14.0-18.0) g/dl Hct 44.0 (40.1-51.0) % Plt Count 216 (130-400) K/uL BMP 05/30/22 05/30/22 07:11 07:58 Sodium TNP 139 Potassium TNP 3.6 Chloride 106 Carbon Dioxide 27 BUN 9 Creatinine 0.73 Glucose 89 Calcium 8.8 Diagnostic Findings KUB X-Ray 05/30/22 08:00 KUB HISTORY: Acute abdominal pain with nausea and vomiting. Assess SBO COMPARISON: KUB 05/29/2022, CT 05/29/2022 FINDINGS: An enteric tube is present with distal tip projected over the distal stomach. Persistent small bowel obstruction with distended air-filled loops of small bowel measuring up to 5.6 cm. Findings appear stable to slightly improved from the comparison CT. Distended contrast-filled urinary bladder. No renal calculi. No ureteral calculi. No pneumoperitoneum or pneumatosis. No fracture. IMPRESSION: 1. Persistent small bowel obstruction. 2. Distal tip of enteric tube projects over the distal stomach. ACT 112: Negative or not required by law. The above report was generated using voice recognition software. It may contain grammatical, syntax or spelling errors. Electronically signed by: Blayne Hernandez M.D. 05/30/2022 9:25 AM
[2022-05-30] MEDS ORDERED: Patient's ALLERGY Info needs ENTERED SCH (16:15)
[2022-05-30 21:41] LABS: A calco-baum cmplx NotReported Not Detected (NotDetected); Bact fragilis Not Reported Not Detected (NotDetected); C auris Not Reported Not Detected (NotDetected); Calbicans Not Reported Not Detected (NotDetected); Candida glabrata Not Reported Not Detected (NotDetected); Candida krusei Not Reported Not Detected (NotDetected); Cneoformans/gatti Not Reported Not Detected (NotDetected); Cparapsilosis Not Reported Not Detected (NotDetected); Ctropicalis Not Reported Not Detected (NotDetected); E cloacae compx Not Reported Not Detected (NotDetected); Efaecalis Not Reported Not Detected (NotDetected); Efaecium Not Reported Not Detected (NotDetected); Enterobacterales Not Reported Not Detected (NotDetected); Escherichia coli Not Reported Not Detected (NotDetected); H influenzae Not Reported Not Detected (NotDetected); K aerogenes Not Reported Not Detected (NotDetected); Koxytoca Not Reported Not Detected (NotDetected); Kpneumoniae grp Not Reported Not Detected (NotDetected); Lmonocyt Not Reported Not Detected (NotDetected); N meningitidis Not Reported Not Detected (NotDetected); P aeruginosa Not Reported Not Detected (NotDetected); Proteus spp Not Reported Not Detected (NotDetected); Salmonella spp Not Reported Not Detected (NotDetected); Smarcescens Not Reported Not Detected (NotDetected); Staph lugdunensis Not Reported Not Detected (NotDetected); Staph spp. Not Reported DETECTED (NotDetected); Staphaureus Not Reported Not Detected (NotDetected); Staphepi Not Reported DETECTED (NotDetected); Staphylococcus spp. DETECTED (NotDetected); Stenmaltophilia Not Reported Not Detected (NotDetected); Strep agal(GrpB) Not Reported Not Detected (NotDetected); Strep pneum Not Reported Not Detected (NotDetected); Strep pyog (GrpA) Not Reported Not Detected (NotDetected); Strep spp Not Reported Not Detected (NotDetected); mecAC Resistant Gene Not Detected (NotDetected)
[2022-05-30 21:47] LABS: Staphylococcus epidermidis DETECTED (NotDetected)
[2022-05-31] MEDS: INSULIN ASPART PER UNIT SC SCH ×5 (06:20→21:05)
[2022-05-31] MEDS: SODIUM CHLORIDE 0.9% 1000ML 1,000 ML IV SCH (07:38)
[2022-05-31 08:10] LABS: Hematocrit (blood only) 41.7 % (40.1-51.0); Hemoglobin 14.3 g/dl (14.0-18.0); Mean Corpuscular Hemoglobin 30.7 pg (25.0-34.0); Mean Corpuscular Hgb Conc 34.3 g/dL (32.0-36.0); Mean Corpuscular Volume 89.5 fL (80.0-100.0); Mean Platelet Volume 10.4 fL (9.4-12.4); Platelet Count 199 K/uL (130-400); RDW Coefficient of Variation 12.5 % (11.5-14.5); RDW Standard Deviation 40.8 fL (36.4-46.3); Red Blood Count 4.66 M/uL (4.63-6.08); White Blood Count 8.49 K/ul (4.8-10.8)
[2022-05-31 08:46] LABS: BUN Creatinine Ratio 14.7 (10-20); Calcium 8.9 mg/dl (8.5-10.1); Est GFR (African American) 122.2 ml/min; Est GFR (Non-African American) 105.5 ml/min; Magnesium 1.8 mg/dl (1.7-2.4); Phosphorus 3.7 mg/dl (2.5-4.9); Potassium 3.4 mmol/L (3.5-5.1)
--- NOTE | 2022-05-31 09:10 | XRay Report ---
KUB HISTORY: Follow up study in a patient with small bowel obstruction SBO COMPARISON: KUB 05/30/2022 FINDINGS: Persistent small bowel obstruction with air-filled dilated loops of small bowel within the midabdomen measuring up to 5.4 cm. Distal tip of enteric tube projects over the distal stomach. The o verall degree of small bowel distention appears generally stable from yesterday's study. No renal ca lculi. No ureteral calculi. No pneumoperitoneum or pneumatosis. No fracture. IMPRESSION: 1. Stable appearance of the small bowel obstruction. 2. Enteric tube projects over the distal stomach. ACT 112: Negative or not required by law. The above report was generated using voice recognition software. It may contain grammatical, syntax o r spelling errors. Electronically signed by: Blayne Hernandez M.D. 05/31/2022 9:09 AM
[2022-05-31] MEDS: POTASSIUM CHLORIDE / WTR 10 MEQ/100 ML PLCT IV SCH ×4 (10:13→13:37)
[2022-05-31] MEDS ORDERED: VANCOMYCIN CONSULT ACTIVE PRN (10:39)
--- NOTE | 2022-05-31 12:40 | Surgery Progress Note ---
Date of Service May 31, 2022 Assessment & Plan (1) Small bowel obstruction: Plan 51 year-old male who presented to ED with 1 day history of vomiting and generalized abdominal pain. CT scan with evidence of SBO at level of distal jejunum however no prior history of abdominal surgeries. Question of possible superimposed gastroenteritis. 05/31/2022: Leukocytosis resolved afebrile KUB showing persistent SBO , stable Passing more flatus today NGT with 250 cc output, more bilious in nature today 1/2 blood culture positive, ? contamination Plan: Continue conservative measures Discontinue NGT and start clear liquids, advised pt to go slowly Encouraged ambulation to increase bowel motility repeat am labs Continue medical management Patient seen in collaboration with Dr. Flores during rounds who agrees with above. Admission and Anticipated Discharge Date Admission Date: May 29, 2022 Subjective Feeling better today Pain is improving and not getting worse Pain is still generalized No nausea or vomiting Passing more gas today than it was yesterday but still no bowel movement Physical Exam Constitutional: WD/WN, vitals as above + obese; no acute distress and not ill appearing Neck: normal visual inspection and trachea midline Respiratory: normal respiratory effort; no respiratory distress and no labored breathing Gastrointestinal (Abdomen): Inspection/Auscultation: abdomen normal to inspection and normal bowel sounds; abdomen not distended Percussion/Palpation: abdomen soft; abdomen nontender, no guarding and abdomen not rigid NGT with dark bilious output Skin: no rashes, warm and dry Psychiatric: Orientation: alert and oriented x 3 Affect: + flat affect Results & Data ([facility]) Vital Signs (Past 12 Hours) Vital Signs Temp Pulse Resp BP Pulse Ox O2 Del Method 05/31/22 07:47 36.9 C 90 16 146/92 H 95 Room Air Laboratory Results 05/31/22 05/31/22 05/31/22 Range/Units 11:48 07:03 07:03 WBC 8.49 (4.8-10.8) K/ul RBC 4.66 (4.63-6.08) M/uL Hgb 14.3 (14.0-18.0) g/dl Hct 41.7 (40.1-51.0) % MCV 89.5 (80.0-100.0) fL MCH 30.7 (25.0-34.0) pg MCHC 34.3 (32.0-36.0) g/dL RDW Std Deviation 40.8 (36.4-46.3) fL RDW Coeff of Son 12.5 (11.5-14.5) % Plt Count 199 (130-400) K/uL MPV 10.4 (9.4-12.4) fL Sodium 142 (136-145) mmol/L Potassium 3.4 L (3.5-5.1) mmol/L Chloride 106 (98-107) mmol/L Carbon Dioxide 29 (21-32) mmol/L Anion Gap 7 (3-11) BUN 11 (6-23) mg/dl Creatinine 0.75 (0.6-1.4) mg/dl Est Cr Clr Drug Dosing 160.0 ml/min Est GFR ( Amer) 122.2 ml/min Est GFR (Non-Af Amer) 105.5 ml/min BUN/Creatinine Ratio 14.7 (10-20) Glucose 81 (70-99(Fasting)) mg/dl POC Glucose 91 (70-99) mg/dl Calcium 8.9 (8.5-10.1) mg/dl Phosphorus 3.7 (2.5-4.9) mg/dl Magnesium 1.8 (1.7-2.4) mg/dl Staphylococcus sp PCR (NotDetected) mecA/C-Methicil Resis Gene (NotDetected) Staph epidermidis (PCR) (NotDetected) Bld Cult ID Panel PCR (NotDetected) 05/31/22 05/30/22 05/30/22 Range/Units 06:11 23:38 18:06 WBC (4.8-10.8) K/ul RBC (4.63-6.08) M/uL Hgb (14.0-18.0) g/dl Hct (40.1-51.0) % MCV (80.0-100.0) fL MCH (25.0-34.0) pg MCHC (32.0-36.0) g/dL RDW Std Deviation (36.4-46.3) fL RDW Coeff of Son (11.5-14.5) % Plt Count (130-400) K/uL MPV (9.4-12.4) fL Sodium (136-145) mmol/L Potassium (3.5-5.1) mmol/L Chloride (98-107) mmol/L Carbon Dioxide (21-32) mmol/L Anion Gap (3-11) BUN (6-23) mg/dl Creatinine (0.6-1.4) mg/dl Est Cr Clr Drug Dosing ml/min Est GFR ( Amer) ml/min Est GFR (Non-Af Amer) ml/min BUN/Creatinine Ratio (10-20) Glucose (70-99(Fasting)) mg/dl POC Glucose 93 98 96 (70-99) mg/dl Calcium (8.5-10.1) mg/dl Phosphorus (2.5-4.9) mg/dl Magnesium (1.7-2.4) mg/dl Staphylococcus sp PCR (NotDetected) mecA/C-Methicil Resis Gene (NotDetected) Staph epidermidis (PCR) (NotDetected) Bld Cult ID Panel PCR (NotDetected) 05/29/22 Range/Units 15:34 WBC (4.8-10.8) K/ul RBC (4.63-6.08) M/uL Hgb (14.0-18.0) g/dl Hct (40.1-51.0) % MCV (80.0-100.0) fL MCH (25.0-34.0) pg MCHC (32.0-36.0) g/dL RDW Std Deviation (36.4-46.3) fL RDW Coeff of Son (11.5-14.5) % Plt Count (130-400) K/uL MPV (9.4-12.4) fL Sodium (136-145) mmol/L Potassium (3.5-5.1) mmol/L Chloride (98-107) mmol/L Carbon Dioxide (21-32) mmol/L Anion Gap (3-11) BUN (6-23) mg/dl Creatinine (0.6-1.4) mg/dl Est Cr Clr Drug Dosing ml/min Est GFR ( Amer) ml/min Est GFR (Non-Af Amer) ml/min BUN/Creatinine Ratio (10-20) Glucose (70-99(Fasting)) mg/dl POC Glucose (70-99) mg/dl Calcium (8.5-10.1) mg/dl Phosphorus (2.5-4.9) mg/dl Magnesium (1.7-2.4) mg/dl Staphylococcus sp PCR DETECTED A (NotDetected) mecA/C-Methicil Resis Gene Not Detected (NotDetected) Staph epidermidis (PCR) DETECTED A (NotDetected) Bld Cult ID Panel PCR See PCR Comment (NotDetected) Microbiology 05/29/22 15:34 Aerobic Blood Culture - Preliminary Blood Coag neg staph not lugdunensis Anaerobic Blood Culture - Preliminary No growth in Anaerobic bottle after 24 hours. 05/29/22 14:56 Aerobic Blood Culture - Preliminary Blood No growth in Aerobic bottle after 24 hours. Anaerobic Blood Culture - Preliminary No growth in Anaerobic bottle after 24 hours. Diagnostic Findings KUB HISTORY: Follow up study in a patient with small bowel obstruction SBO COMPARISON: KUB 05/30/2022 FINDINGS: Persistent small bowel obstruction with air-filled dilated loops of small bowel within the midabdomen measuring up to 5.4 cm. Distal tip of enteric tube projects over the distal stomach. The overall degree of small bowel distention appears generally stable from yesterday's study. No renal calculi. No ureteral calculi. No pneumoperitoneum or pneumatosis. No fracture. IMPRESSION: 1. Stable appearance of the small bowel obstruction. 2. Enteric tube projects over the distal stomach.
[2022-05-31] MEDS ORDERED: VANCOMYCIN HCL 2,750 MG in SODIUM CHLORIDE 0.9% 500 ML IV ONE (13:00)
--- NOTE | 2022-05-31 13:07 | Hospitalist Progress Note ---
Date of Service May 31, 2022 Assessment & Plan (1) Small bowel obstruction: Plan: 51-year-old male with PMHx of uncontrolled DM type II, obesity with a BMI of 38.6, MDD, history of seizure disorder at age 12, migraine, congenital right pelvic kidney, current tobacco smoker, who presented with acute onset of nausea and vomiting, abdominal pain. CT ABD/pelvis: 1. Small bowel obstruction with the transition point located within the lower abdomen at the level of the distal jejunum. This could be due to an adhesion. 2. Mild thickening within the mid to distal jejunal loops raising the possibility of a superimposed enteritis. This may also account for the small bowel obstruction. 3. Normal appendix. 4. Trace mesenteric/pelvic ascites. 5. Hepatic steatosis. 6. Stable 3 mm nodule within the left lung base. 7. Right-sided pelvic kidney again noted. NG tube placed on admission, total output 800 cc Lactic acid 2.0 NGT d/c'd today by surgery, starting clear liquids General surgery following Possible superimposed gastroenteritis, ? viral -- started on empiric IV ceftriaxone and IV Flagyl on admission, d/c'd on 05/30 WBC 14 K --> 11K --> 8K today Positive Blood Culture 09/20 BC growing coag negative staph, suspect contaminant Leukocytosis resolved, patient remains afebrile Will start empiric IV Vanco Repeat blood cultures (2) Leukocytosis: Plan: Possibly secondary to enteritis, ? food born illness from gas station food that had been sitting out No diarrhea reported Leukocytosis resolved (3) DM type 2 (diabetes mellitus, type 2): Plan: Last A1C =11.3 in March, now 6.4 NovoLog per protocol while hospitalized Per admitting provider, patient is noncompliant with medication (metformin and ozempic) (4) Tobacco use: Plan: Smoking cessation encouraged Offered nicotine patch, patient declined (5) Pulmonary nodule: Plan: CT ABD/pelvis noted Stable 3 mm nodule within the left lung base Outpatient follow-up (6) Obesity (BMI 30-39.9): Plan: BMI of 38.6, diet and exercise to be encouraged throughout hospital stay DVT ppx: TEDs/SCDs, hold on chemical prophylaxis due to need for possible surgery Admission and Anticipated Discharge Date Admission Date: May 29, 2022 Supervising Physician Co-Signing Physician Notes Patient seen and examined by me, care coordinated with YIN Stewart, please refer to her note above for further detail. Patient seen in follow-up of small bowel obstruction. Currently sitting up in bed in no acute distress. NG tube was removed today. Patient reports flatus, however no BM yet. Per surgery okay to start liquid diet slowly, agree with that as well. Blood culture positive, possible contaminant, however we will continue empiric antibiotic for now, and will repeat blood cultures. Overall patient is awake alert oriented answering questions appropriately. In no acute distress. Abdominal pain seems to be much improved. Abdomen is soft, mildly tender to palpation, positive bowel sounds. Lungs clear to auscultation, heart sounds regular. No lower extremity edema. Patient moves extremities. MD Mena Subjective Follow up for small bowel obstruction. Patient seen and examined. NG tube has been removed. Patient reports feeling much improvement. Abdominal pain resolving. Denies nausea, + flatus, no BM. Denies chest pain and shortness of breath. No lightheadedness or dizziness. Review of Systems Review of Systems: ROS per HPI, all other systems reviewed and negative Physical Exam Constitutional: WD/WN, vitals as above no acute distress Respiratory: normal respiratory effort, lungs clear to auscultation Cardiovascular: Rate/Rhythm: regular rate and regular rhythm Vessels: normal peripheral pulses Extremities: no edema Gastrointestinal (Abdomen): Inspection/Auscultation: abdomen not distended Percussion/Palpation: + abdomen tender (mild generalized tenderness) and abdomen soft Skin: no rashes, warm and dry Neurologic: no focal motor deficits Psychiatric: A+Ox3, euthymic affect Results & Data Results & Data ([facility]) Vital Signs (Past 12 Hours) Vital Signs Temp Pulse Resp BP Pulse Ox O2 Del Method 05/31/22 07:47 36.9 C 90 16 146/92 H 95 Room Air Laboratory Results Short CBC 05/31/22 Range/Units 07:03 WBC 8.49 (4.8-10.8) K/ul Hgb 14.3 (14.0-18.0) g/dl Hct 41.7 (40.1-51.0) % Plt Count 199 (130-400) K/uL BMP 05/31/22 07:03 Sodium 142 Potassium 3.4 L Chloride 106 Carbon Dioxide 29 BUN 11 Creatinine 0.75 Glucose 81 Calcium 8.9 Microbiology 05/29/22 15:34 Blood Aerobic Blood Culture - Preliminary Coag neg staph not lugdunensis 05/29/22 15:34 Blood Anaerobic Blood Culture - Preliminary No growth in Anaerobic bottle after 24 hours. 05/29/22 14:56 Blood Aerobic Blood Culture - Preliminary No growth in Aerobic bottle after 24 hours. 05/29/22 14:56 Blood Anaerobic Blood Culture - Preliminary No growth in Anaerobic bottle after 24 hours.
--- NOTE | 2022-05-31 13:30 | Pharmacy Report ---
Pharmacy PK ABX Note - Date of Service May 31, 2022 - Assessment and Plan Assessment * Mr Ta is a 51 year old M receiving Vancomycin for treatment of bacteremia. * Pertinent microbiologic data includes: 1 of 4 BCx with coag neg staph (likely contaminant); repeat BCx pending * Pt presented to hospital with N/V/abd pain (?food poisoning). Pt found to have SBO/enteritis. * Pt received Rocephin and Flagyl 05/29-05/30. Plan Vancomycin * Loading dose: 2750 mg (21.3mg/kg) IV x 1 * Maintenance dose: 1500 mg IV every 12 hours * Regimen is predicted to achieve target AUC/PEPE of 400-600 mg/L.hr Pharmacy will continue to follow and will adjust dose/frequency as necessary. Thank you. Pharmacy has transitioned to AUC monitoring for vancomycin. AUC/PEPE is the preferred PK/PD target and is associated with decreased risk of nephrotoxicity compared to traditional trough targets.
[2022-05-31] MEDS ORDERED: Nursing to Pharmacy Communication SCH (20:00)
[2022-06-01] MEDS: INSULIN ASPART PER UNIT SC SCH ×2 (09:16→12:54)
[2022-06-01 10:14] LABS: Hemoglobin 14.3 g/dl (14.0-18.0); Mean Corpuscular Hgb Conc 35.8 g/dL (32.0-36.0); Mean Corpuscular Volume 86.6 fL (80.0-100.0); Platelet Count 203 K/uL (130-400); RDW Coefficient of Variation 12.4 % (11.5-14.5); RDW Standard Deviation 38.8 fL (36.4-46.3); Red Blood Count 4.62 M/uL (4.63-6.08); White Blood Count 7.28 K/ul (4.8-10.8)
--- NOTE | 2022-06-01 10:18 | Surgery Progress Note ---
Date of Service June 01, 2022 Assessment & Plan (1) Small bowel obstruction: Plan 51 year-old male who presented to ED with 1 day history of vomiting and generalized abdominal pain. CT scan with evidence of SBO at level of distal jejunum however no prior history of abdominal surgeries. Question of possible superimposed gastroenteritis. 06/01/2022: afebrile + return of bowel function abdominal pain resolved 1/2 blood culture positive, ? contamination, repeated yesterday still pending Plan: Advance diet as tolerated await repeat blood cultures hopefully discharge home later today if tolerated advancement of diet and blood cultures negative continue medical management Patient seen in collaboration with Dr. Flores during rounds who agrees with above. Admission and Anticipated Discharge Date Admission Date: May 29, 2022 Subjective feeling good today no n,v having multiple liquid bowel movements and flatus abdominal pain has completely resolved Physical Exam Constitutional: WD/WN, vitals as above + obese; no acute distress and not ill appearing Neck: normal visual inspection and trachea midline Respiratory: normal respiratory effort; no respiratory distress and no labored breathing Gastrointestinal (Abdomen): Inspection/Auscultation: abdomen normal to inspection; abdomen not distended Percussion/Palpation: abdomen soft; abdomen nontender, no guarding and abdomen not rigid Skin: no rashes, warm and dry Psychiatric: A+Ox3, euthymic affect Results & Data ([facility]) Vital Signs (Past 12 Hours) Vital Signs Temp Pulse Resp BP Pulse Ox O2 Del Method 06/01/22 06:24 37.1 C 75 16 133/73 96 Room Air Laboratory Results 06/01/22 06/01/22 06/01/22 Range/Units 09:29 09:29 08:09 WBC 7.28 (4.8-10.8) K/ul RBC 4.62 L (4.63-6.08) M/uL Hgb 14.3 (14.0-18.0) g/dl Hct 40.0 L (40.1-51.0) % MCV 86.6 (80.0-100.0) fL MCH 31.0 (25.0-34.0) pg MCHC 35.8 (32.0-36.0) g/dL RDW Std Deviation 38.8 (36.4-46.3) fL RDW Coeff of Son 12.4 (11.5-14.5) % Plt Count 203 (130-400) K/uL MPV 10.0 (9.4-12.4) fL Sodium Pending Potassium Pending Chloride Pending Carbon Dioxide Pending Anion Gap Pending BUN Pending Creatinine Pending Est Cr Clr Drug Dosing Pending Est GFR ( Amer) Pending Est GFR (Non-Af Amer) Pending BUN/Creatinine Ratio Pending Glucose Pending POC Glucose 84 (70-99) mg/dl Calcium Pending Magnesium Pending 05/31/22 05/31/22 05/31/22 Range/Units 20:32 17:06 11:48 WBC (4.8-10.8) K/ul RBC (4.63-6.08) M/uL Hgb (14.0-18.0) g/dl Hct (40.1-51.0) % MCV (80.0-100.0) fL MCH (25.0-34.0) pg MCHC (32.0-36.0) g/dL RDW Std Deviation (36.4-46.3) fL RDW Coeff of Son (11.5-14.5) % Plt Count (130-400) K/uL MPV (9.4-12.4) fL Sodium Potassium Chloride Carbon Dioxide Anion Gap BUN Creatinine Est Cr Clr Drug Dosing Est GFR ( Amer) Est GFR (Non-Af Amer) BUN/Creatinine Ratio Glucose POC Glucose 93 90 91 (70-99) mg/dl Calcium Magnesium
[2022-06-01 10:37] LABS: Calcium 8.9 mg/dl (8.5-10.1); Creatinine Clr Calc Pharmacy 173.9 ml/min; Est GFR (African American) 126.5 ml/min; Est GFR (Non-African American) 109.1 ml/min; Magnesium 1.7 mg/dl (1.7-2.4); Potassium 3.3 mmol/L (3.5-5.1)
[2022-06-01] MEDS ORDERED: VANCOMYCIN HCL 1,500 MG in SODIUM CHLORIDE 0.9% 500 ML IV SCH (11:00)
[2022-06-01] MEDS ORDERED: MAGNESIUM SULFATE / D5W 1 GM/100 ML BAG IV ONE (12:53)
[2022-06-01] MEDS: POTASSIUM CHLORIDE / WTR 10 MEQ/100 ML PLCT IV SCH ×2 (14:12→15:12)
--- NOTE | 2022-06-01 16:14 | Discharge Summary ---
Date of Service June 01, 2022 Admission HPI Per Admitting Provider This is a 51-year-old male with PMHx of uncontrolled DM type II, obesity with a BMI of 38.6, MDD, history of seizure disorder at age 12, migraine, congenital right pelvic kidney, current tobacco smoker, who presents to the ER with acute onset of nausea and vomiting as well as abdominal pain x1 day. 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 He denies any fevers or chills specifically but has been having sweats with dry heaves. Abdominal pain was rated as an 8/10 and came to the ER. He feels like there are a bunch of snakes rolling around in his stomach. His last bowel movement was a day or 2 ago, and says every 3 days is typical for him. Denies ever having abdominal surgeries before. He was scheduled to have an outpatient colonoscopy at [facility] last month however the prep was poor, did not complete the study. He lives at home with his and his 's parents, denies any recent sick contacts. Nobody he knows is exhibiting symptoms such as his, but he denies that anybody else ate similar foods/ has same symptoms that he is aware of. CT of the abdomen pelvis shows small bowel obstruction with a transition point located at the lower abdomen at the level of the distal jejunum, noted that it could be due to an adhesion. There is concern for superimposed enteritis with mild thickening of the mid to distal jejunal loops, hepatic steatosis, right- sided pelvic kidney. Patient has not had any abdominal surgeries previously. White count is 14 K. Will check a lactic acid and blood cultures and start empiric antibiotics. NGT was placed in the ER to LIS. Admission Exam Per Admitting Provider General: awake, alert, + mild distress, NGT has been placed in the ER Head: Normocephalic, atraumatic ENT: PERRL, EOMI, no pharyngeal exudate, mucous membranes moist Chest: On room air, expiratory wheeze L>R, otherwise no adventitious breath sounds Cardiac: Sinus tachycardia, no murmur, no JVD, normal peripheral pulses, good capillary refill Abdominal: Hypoactive to absent bowel sounds in 4 quadrants, +soft, minimally distended, +tender to palpation, no rebound or guarding Extremities: Normal inspection, no peripheral edema or erythema, calfs nontender to palpation Psych: Appropriately upset mood and flat Neuro: AAO x 3, strength intact bilaterally and rated 5/5, no motor deficits, speech is clear, no peripheral sensory deficits Principal Diagnosis SBO Discharge Exam Gen: WD/WN, NAD, sitting in bed, A&Ox3 HEENT: Normocephalic, atraumatic, conjunctivae moist, sclerae anicteric, mucous membranes moist Lung: Clear to Auscultation bilaterally, no wheezes/rales/rhonchi Heart: Regular rate, regular rhythm, no murmurs, rubs, or gallops Abdomen: Soft, NT, ND +BS x 4 Extremities: no edema Skin: Warm, no rash Discharge Data Allergies Allergy/AdvReac Type Severity Reaction Status Date / Time ketchup AdvReac Severe Anaphylaxis Verified 05/30/22 18:31 Consultations 05/29/22 14:04 ED Decision to Admit Stat Ordered Studies 05/29/22 10:48 CT abd pelvis IV con only Stat FINDINGS: Stable 3 mm nodule within the left lower lobe on image 28. No pneumoperitoneum. No pneumatosis. No fractures within the visualized osseous structures. Mild hepatic steatosis. The gallbladder, pancreas, spleen, adrenal glands, and left kidney are unremarkable. A right pelvic kidney is again noted. No hydronephrosis. There is mild bladder wall thickening with adjacent fat stranding. There is trace pelvic free fluid. No retroperitoneal lymphadenopathy. Normal caliber abdominal aorta. The main portal vein is patent. The majority colon is decompressed. There is a normal appendix. Multiple dilated loops of proximal to mid small bowel containing gas and fluid. These measure up to 5 cm in diameter. There is smooth tapering of the small bowel loops with a transition point located within the lower abdomen on image 382. Therefore, these findings are consistent with a small bowel obstruction with the transition point located at the distal jejunum. There is mild circumferential thickening of the distal jejunal loops which could represent a superimposed enteritis. There is trace mesenteric fluid adjacent to the dilated loops of small bowel. IMPRESSION: 1. Small bowel obstruction with the transition point located within the lower abdomen at the level of the distal jejunum. This could be due to an adhesion. 2. Mild thickening within the mid to distal jejunal loops raising the possibility of a superimposed enteritis. This may also account for the small bowel obstruction. 3. Normal appendix. 4. Trace mesenteric/pelvic ascites. 5. Hepatic steatosis. 6. Stable 3 mm nodule within the left lung base. 7. Right-sided pelvic kidney again noted. 8. Additional findings as described above. Hospital Course (1) Small bowel obstruction: (2) DM type 2 (diabetes mellitus, type 2): (3) Tobacco use: (4) Pulmonary nodule: (5) Obesity (BMI 30-39.9): Plan This is a 51-year-old male with PMHx of uncontrolled DM type II, obesity with a BMI of 38.6, MDD, history of seizure disorder at age 12, migraine, congenital right pelvic kidney, current tobacco smoker, who presented with acute onset of nausea and vomiting, abdominal pain. CT abd/pelvis revealed small bowel obstruction with a transition point located within the lower abdomen at the level of the distal jejunum. Also noted to have stable 3 mm pulmonary nodule within the left lung base. NG tube placed on admission, with total output of 800 cc. NG tube was then discontinued by surgery and diet was advanced with patient tolerating well. Passed flatus and had bowel movement today. Did have 1 out of 4 blood culture growing coag negative staph, suspected contaminant with negative repeat blood cultures. Advancing diet to low-fat, low fiber over the next few days with PCP follow up in place. Encourged compliance with diabetes medication. Patient asymptomatic and hemodynamically stable at time of discharge. Total Time Total Time Spent Total Time Spent (In Minutes): 40 Discharge Plan Discharge Items Patient Disposition: Home - Self-Care Reason For Visit: SBO Discharge Diagnosis: SBO Activity: Resume your previous activity Non-emergency contact: Primary Care Provider Call non-emergency contact if: you have any medication questions, your symptoms worsen, your pain is not controlled and you have a fever Follow-up/Referrals: Laura Cool PA-C [Primary Care Provider] - Diet: Low Fiber and Low Fat Addtl Attending Provider Instructions: You were admitted with a small bowel obstruction that has resolved. Continue low fat and low fiber diet for a few days. Also found to have a stable 3 mm nodule within the left lung base. Please follow up with primary care. Please continue to follow diabetes regimen. Please follow up with primary care provider as above. OTHER INSTRUCTIONS: Seek medical attention if you have: * temperature above 101 * chest pain or trouble breathing * abdominal pain, nausea, vomiting * diarrhea, dark stools or bloody stools * any unanswered questions or concerns Call 911 if symptoms are severe. Please take good care of yourself. Call if you have any questions or problems. You can reach a [facility] hospitalist on duty at [facility] 24 hours a day by calling [phone]. Pending Studies at Discharge: No Stand-Alone Forms: My [facility], Smoking Cessation Medications and DC Order Prescriptions: Continued metformin 1,000 mg tablet 1,000 mg PO BID Ozempic 0.25 mg or 0.5 mg(2 mg/1.5 mL) pen injector 0.25 mg SUBCUT WK Discharge Orders: Discharge Order (Routine); Ordered 06/01/22 Ordered By: Cynthia Gómez/Other Patient Handouts: Managing Type 2 Diabetes, 5 Steps for Eating Healthier Admission Data Admit Date/Time: 05/29/22 14:28 Attending Provider: Ghluam San Admit Provider: Zach Araujo Primary Care Provider: Laura Cool Other Providers: Zach Araujo ; Cynthia Adame Other Interventions: Discharge Summary Assessment (RN) Last Done: 06/01/22 16:18 Supervising Physician Co-Signing Physician Notes Patient seen and examined by me, care coordinated with Yuan Adame PA-C please refer to her note above for further detail. Patient seen in follow-up of small bowel obstruction. Today pt started to have bowel movements, abdominal pain completely resolved. Patient would like to be discharged home. Was also seen by surgery, no contraindication for discharge. Currently sitting up in bed in no acute distress. Abdomen is soft,nontender to palpation, positive bowel sounds. Lungs clear to auscultation, heart sounds regular. No lower extremity edema. Patient moves extremities. Recommend follow up w/ PCP after DC MD eMna
== END 2022-06-01 17:16 | disposition home or self-care (01) | DRG 390 ==
LOC: ED 09:17 → SUATTDRO 14:28 → 3N 14:28